=== PATIENT | female | born 1940 | race Caucasian/White ===

== ENCOUNTER → 2017-09-02 07:21 | Day surgery (SDC) | payer MEDICARE, OTHER, SELFPAY ==
[2017-09-02 07:39] VITALS: BP 171/97; PULSE 68; RESP 18; O2SAT 100
--- NOTE | 2017-09-02 08:03 | NURSING ---
MANOMETRY ATTEMPTED. L. NARE ANESTHETIZED WITH LIDOCAINE JELLY. PT. PLACED INTO HIGH FOWLERS POSITION. PROBE INSERTED INTO L. NARE AFTER SEVERAL MINUTES FOLLOWING LIDOCAINE JELLY INSERTION. PROBE APPEARED TO BE COILED. RN PULLED PROBE OUT SEVERAL CENTIMETERS AND REINSERTED. PT. PAINFUL, TEARFUL AND UNABLE TO TOLERATE. PT. REQUESTED THAT PROBE BE REMOVED AND TEST ABORTED. PROBE REMOVED. NO VISIBLE BLEEDING. RN ESCORTED PT. OUT TO EXIT DOOR. DR. GIL'S OFFICE TO BE NOTIFIED.
== END ==
PROVIDERS: Family Provider Family Medicine; PCP Family Medicine; Visit Provider Surgery
PROC: F00ZJWZ Instrumental Swallowing and Oral Function Assessment using Swallowing Equipment (ICD-10-PCS; CPT 43235; principal; 2017-09-02 07:25)
DX: Z53.29 Procedure and treatment not carried out because of patient's decision for other reasons (principal)

== ENCOUNTER → 2018-05-26 08:05 | Outpatient (CLI) | payer MEDICARE, OTHER, SELFPAY ==
--- NOTE | 2018-05-26 08:09 | RAD_ITS ---
STUDY: X-RAY - ESOPHAGUS (BARIUM SWALLOW) WITH FLUOROSCOPY REASON FOR EXAM: Female, 77 years old. Dysphagia. Esophageal spasms. TECHNIQUE: 16 view(s) of the esophagus were obtained following swallowing of barium. FLUOROSCOPY TIME (if supplied): (0:33) minutes/seconds COMPARISON: Comparison is made with prior study dated April 03, 2017. FINDINGS: There is no demonstrated esophageal foreign body. There is no demonstrated stricture or mucosal abnormality. There is a large hiatal hernia with intrathoracic herniation of the fundus of the stomach. Narrowing of the distal esophagus at the gastroesophageal junction. The patient ingest a 12 mm tablet of barium. The tablet and strap at the level of the gastroesophageal junction. There is atherosclerotic tortuosity of the aortic arch and descending thoracic aorta. Normal visualized pulmonary parenchyma. There are diffuse degenerative changes of the visualized thoracic spine. RAD/Esophagus Only IMPRESSION: Large hiatal hernia with narrowing of the distal esophagus at the level of the gastric esophageal junction. The 12 mm tablet that barium is trapped at that site. Electronically Signed: Itz Larkin, at 15:39 EDT , Service support ,
== END ==
PROVIDERS: Family Provider Family Medicine; PCP Family Medicine; Referring Provider Internal Medicine Gastroenterology; Visit Provider Internal Medicine Gastroenterology
DX: R13.10 Dysphagia, unspecified (principal)
CPT/HCPCS: 74220

== ENCOUNTER 2018-07-14 10:42 | Inpatient (IN) | payer MEDICARE, OTHER, SELFPAY ==
[2018-07-14] VITALS (9 sets, daily range): BP systolic 111–150; BP diastolic 62–81; PULSE 79–105; RESP 14–22; TEMP 36.8–38.8; O2SAT 97–100; BMI 32.5; BMI 33.0
--- NOTE | 2018-07-14 10:56 | EKG12_ITS ---
Test Reason : Blood Pressure : / mmHG Vent. Rate : 098 BPM Atrial Rate : 098 BPM P-R Int : 172 ms QRS Dur : 086 ms QT Int : 342 ms P-R-T Axes : 031 016 020 degrees QTc Int : 436 ms Sinus rhythm with occasional Premature ventricular complexes Otherwise normal ECG Confirmed by IRAIS TEAGUE, KYLEIGH ([id number]), proposal editor RAFFI SALMERON ([id number]) on 07/16/2018 9:28:55 AM Referred By: Richard Martinez Confirmed By:KYLEIGH BRAXTON MD
[2018-07-14] MEDS: Acetaminophen 325 MG Tablet 650 MG PO (11:11)
[2018-07-14 11:26] LABS: Absolute Lymphocyte Count 0.88 X10^3/ul (0.83-4.51); Absolute Neutrophil Count 8.9 X10^3/uL (2.0-7.7); Basophil# 0.01 X10^3/uL; Basophil% 0.1 % (0-1); Eosinophil# 0.03 X10^3/uL; Eosinophils% 0.3 % (0-5); Hemoglobin 13.8 g/dl (12.0-15.0); Lymphocyte # 0.88 X10^3/ul (4.0); Lymphocyte % 8.4 % (19-41); Mean Corp Hgb Conc 34.5 g/gl (32-36); Mean Corpuscular Hgb 29.6 pg (27.0-32.0); Mean Corpuscular Volume 85.8 fL (81-99); Mean Platelet Vol. 9.9 fl (6.2-12.0); Monocyte# 0.67 X10^3/uL; Monocyte% 6.4 % (0-10); Neutrophil # 8.85 X10^3/uL (2.7-7.7); Neutrophil % 84.5 % (47-70); POSITIVE COUNT NO; POSITIVE DIFFERENTIAL NO; POSITIVE MORPHOLOGY NO; Platelet Count 159 K/mm3 (150-450); RBC Distribution Width CV 13.3 % (11.6-14.6); RBC Distribution Width SD 40.7 fl (35.1-43.9); Red Blood Count 4.66 M/mm3 (4.2-5.4); White Blood Count 10.5 K/mm3 (4.4-11.0)
[2018-07-14 11:30] LABS: Red Blood Cells-Urine 0 SEEN /hpf (0-5)
[2018-07-14] MEDS: Ceftriaxone 1 GM/50 ML BAG IV (11:30)
[2018-07-14] MEDS: 0.9% Normal Saline 1,000 ML 250 ML IV (11:30)
[2018-07-14 11:31] LABS: Color, Urine Yellow (Yellow); Glucose, Dipstick Normal (Normal); Ketone-Dipstick 5 mg/dl (Negative); Leukocyte Esterase-Dipstick 500 /ul (Negative); Nitrite-Dipstick Negative (Negative); Occult Blood-Urine 10 /ul (Negative); Protein-Dipstick 15 mg/dl (Negative); Specific Gravity, Urine 1.015 (1.002-1.030); Urine Bilirubin Dipstick Negative (Negative); Urine Clarity Sl. Cloudy (Clear); Urine Urobilinogen 1 mg/dl (Normal)
--- NOTE | 2018-07-14 11:33 | ED.VIS.GEN ---
History of Present Illness Chief Complaint: Fever Informant: Patient, Significant Other Onset: Days Context: Sudden Onset Timing: Continuous Quality: Fever Location: Respiratory and generalized Current Severity: Mild Maximum Severity: Moderate Worsened by: Nothing Relieved by: Nothing Associated Symptoms: Diagnosed by Dr. Koch on Friday with urinary tract infection Narrative: Patient is an elderly woman who was seen by Dr. Koch her PCP on Friday. Diagnosed with urinary tract infection and prescribed Macrobid. Patient states she is taking the medicine. She continues to have fever. She denies dysuria, frequency, urgency or hematuria. She denies lower abdominal pain, low back pain or flank pain. She denies rash or skin lesions. She does report nausea with dry heaves. She denies cardiac or respiratory symptoms. Prior similar symptoms: Yes Recent Illness/Hospitalization: Yes Past Medical History - Allergies and Home Meds Allergies/Adverse Reactions: Allergies codeine Allergy (Verified 07/14/18 10:45) Unknown Sulfa (Sulfonamide Antibiotics) Allergy (Verified 07/14/18 10:45) Unknown Primary Care Physician: Umberto Koch MD [Primary Care Provider] - Prior records reviewed: Yes Surgical History: noncontributory, adenoidectomy, appendectomy, cholecystectomy, hysterectomy - With bilateral salpingo-oophorectomy Lives: Spouse/ Significant Other Smoking Status: Never smoker Alcohol: None Drugs: None Review of Systems General: Reports: Chills, Fever, Sweats. Denies: Weight loss Eyes: Denies: Visual changes - bilaterally, Blurred Vision - bilaterally, Diplopia ENT: Denies: Bilateral ear pain, Rhinorrhea, Sore throat Cardiovascular: Denies: Chest pain, Palpitations Respiratory: Denies: Dyspnea, Cough, Dyspnea on exertion Gastrointestinal: Denies: Abdominal pain, Nausea, Vomiting, Diarrhea, Melena, Hematochezia Genitourinary: Denies: Dysuria, Hematuria, Frequency Musculoskeletal: Denies: Myalgias, Arthralgias, Neck pain, Back pain, Extremity Pain Skin: Denies: Rash, Wounds Neurological: Reports: Weakness Hematologic: Denies: Easy bruising, Easy bleeding Allergy: Denies: Uticaria Physical Exam Vital Signs/Narrative: Vital Signs Temp Pulse Resp BP Pulse Ox 07/14/18 10:42 101.8 F H 105 H 22 H 145/78 H 97 Inital Vital Signs reviewed: Yes General: Well nourished, Well developed, No Acute Distress Head: Normocephalic, Atraumatic Eyes: Perrl, EOMI. Negative for: Pale conjunctiva, Scleral icterus, - ENT: Moist mucous membranes, No rhinorrhea Neck: Supple, Nontender Cardiovascular: Regular rhythm, No murmurs, Normal S1, Normal S2, Tachycardia Respiratory: No distress, CTA bilaterally, Chest nontender Abdomen: Soft, Nontender, Nondistended, Normal bowel sounds, No masses. Negative for: Hepatomegaly, Splenomegaly, Mass Back: Nontender, Normal Inspection. Negative for: CVA tenderness Extremities: Nontender, No edema Skin: Normal color, No rash. Negative for: Cyanosis, Jaundice Neurological: Alert, Oriented x3, Cranial nerves II-XII grossly intact, Normal Strength, Normal Sensation Psychological: Normal affect, Normal Mood Diagnostic/Tx/Re-eval Laboratory Results 07/14/18 07/14/18 07/14/18 11:15 11:15 11:15 WBC 10.5 RBC 4.66 Hgb 13.8 Hct 40.0 MCV 85.8 MCH 29.6 MCHC 34.5 RDW 13.3 RDW Differential 40.7 Plt Count 159 MPV 9.9 Immature Gran % (Auto) 0.300 Neut % (Auto) 84.5 H Lymph % (Auto) 8.4 L [place] % (Auto) 6.4 Eos % (Auto) 0.3 Baso % (Auto) 0.1 Absolute Neuts (auto) 8.9 H Absolute Lymphs (auto) 0.88 Total Counted Not Reportable PT 13.5 INR 1.1 APTT 27.1 Sodium 140 Potassium 3.4 L Chloride 107 Carbon Dioxide 25.0 Anion Gap 8 BUN 16 Creatinine 0.94 Estim Creat Clear Calc 39.64 Est GFR (MDRD) Af Amer 74 Est GFR (MDRD) Non-Af 61 BUN/Creatinine Ratio 17.0 Glucose 130 H Lactic Acid Calcium 8.7 Total Bilirubin 0.70 AST 19 ALT 20 Alkaline Phosphatase 72 Total Protein 7.5 Albumin 3.9 Globulin 3.6 Albumin/Globulin Ratio 1.1 Urine Color Urine Clarity Urine pH Ur Specific [place] Urine Protein Urine Glucose (UA) Urine Ketones Urine Occult Blood Urine Nitrite Urine Bilirubin Urine Urobilinogen Ur Leukocyte Esterase Urine RBC Urine WBC Ur Squamous Epith Cells Urine Bacteria Urine Mucus 07/14/18 07/14/18 11:15 11:15 WBC RBC Hgb Hct MCV MCH MCHC RDW RDW Differential Plt Count MPV Immature Gran % (Auto) Neut % (Auto) Lymph % (Auto) [place] % (Auto) Eos % (Auto) Baso % (Auto) Absolute Neuts (auto) Absolute Lymphs (auto) Total Counted PT INR APTT Sodium Potassium Chloride Carbon Dioxide Anion Gap BUN Creatinine Estim Creat Clear Calc Est GFR (MDRD) Af Amer Est GFR (MDRD) Non-Af BUN/Creatinine Ratio Glucose Lactic Acid 1.8 Calcium Total Bilirubin AST ALT Alkaline Phosphatase Total Protein Albumin Globulin Albumin/Globulin Ratio Urine Color Yellow Urine Clarity Sl. Cloudy Urine pH 6.0 Ur Specific [place] 1.015 Urine Protein 15 H Urine Glucose (UA) Normal Urine Ketones 5 H Urine Occult Blood 10 H Urine Nitrite Negative Urine Bilirubin Negative Urine Urobilinogen 1 H Ur Leukocyte Esterase 500 H Urine RBC 0 SEEN Urine WBC 5-10 SEEN Ur Squamous Epith Cells 0-5 SEEN Urine Bacteria 1+ Urine Mucus 1+ - Rhythm Strip Rhythm Strip: Sinus Rhythm Rate: 105 Ectopy: PVC(s) - EKG Initial EKG Interpretation: Sinus Tachycardia - Ventricular rate is 98. There are premature ventricular beats noted. OH interval, cures duration, QT interval and axis are normal. - Medical Decision Making With recent diagnosis of urinary tract infection persistent fever and the fact that she is tachycardic tachypnic sepsis work was undertaken. Appropriate test were obtained. Since she denies shortness of breath, dyspnea on exertion or respiratory symptoms chest x-ray was not obtained. She was treated with 1 g of Rocephin. Lactate was obtained to assess if she has sepsis versus severe sepsis versus septic shock. Patient still has evidence of urinary tract infection. Since she is tachycardic, tachypneic and febrile hospitalist was paged for admission. ED Disposition - Plan for ED Patient: Disposition: Acute Care [facility], [place] Diagnosis: Urinary tract infection, Sepsis, Sinus tachycardia by electrocardiogram Referrals: Umberto Koch MD [Primary Care Provider] -
[2018-07-14 11:35] LABS: International Normalized Ratio 1.1; Partial Thromboplast Time 27.1 Seconds (24.1-36.2); Prothrombin Time (Protime)PT. 13.5 SECONDS (11.7-14.9)
[2018-07-14 11:37] LABS: Bacteria 1+ /hpf (None Seen); Squamous Epithelial Cells - UA 0-5 SEEN /hpf (5-10); White Blood Cells 5-10 SEEN /hpf (0-5)
[2018-07-14 11:38] LABS: Mucous, Urine 1+ /hpf (<or=2+)
[2018-07-14 11:54] LABS: ALB/GLOB Ratio 1.1 RATIO (0.9-2.4); AST(SGOT) 19 U/L (15-37); Alanine Aminotransfer ALT/SGPT 20 U/L (13-56); Albumin, Serum 3.9 g/dL (3.2-5.0); Alkaline Phosphatase 72 U/L (45-117); Anion Gap 8 (5-15); BUN 16 mg/dL (7-18); Calcium,Total 8.7 mg/dL (8.5-10.1); Chloride 107 mmol/L (98-107); Creatinine, Serum 0.94 mg/dL (0.55-1.02); EST Glomerular Filtration Rate 61 mL/min (>60); Est Glom Filt Rate - Afr Amer 74 mL/min (>60); Estimated Creatinine Clearance 39.64 ml/min; Globulin 3.6 g/dL (2.2-4.2); Glucose 130 mg/dL (74-106); Potassium 3.4 mmol/L (3.5-5.1); Protein, Total 7.5 g/dL (6.4-8.2); Sodium Level 140 mmol/L (136-145)
[2018-07-14 11:58] LABS: Lactic Acid 1.8 mmol/L (0.4-2.0)
--- NOTE | 2018-07-14 13:11 | NURSING ---
301 JASON SEPSIS SECONDARY TO UTI, FAILED OP TREATMENT
--- NOTE | 2018-07-14 13:20 | RAD_ITS ---
STUDY: X-RAY CHEST REASON FOR EXAM: Female, 77 years old. Fever and chills. History of UTI. TECHNIQUE: PA and lateral views of the chest. COMPARISON: Comparison is made with prior study dated April 03, 2017. FINDINGS: EKG electrodes are seen. Stable increased mild degree of bibasilar scarring. There is no demonstrated pleural abnormality. Normal size heart. Normal mediastinum and brayan. Normal visualized pulmonary arteries. There is atherosclerotic calcification of the aortic arch with tortuosity. There are degenerative changes of the visualized thoracic spine. Normal visualized ribs, clavicles, and shoulders. Moderate sized hiatal hernia. RAD/Chest PA and Lateral IMPRESSION: Stable mild degree of scarring at the lung bases. Electronically Signed: Itz Larkin, at 13:46 EDT , Service support ,
--- NOTE | 2018-07-14 14:39 | CT_ITS ---
STUDY: CT ABDOMEN AND PELVIS WITHOUT CONTRAST REASON FOR EXAM: Female, 77 years old. Right lower quadrant pain, prior appendectomy, cholecystectomy and hysterectomy. RADIATION DOSAGE (If Supplied By Facility): CTDIvol = ( 15.64 ) mGy, DLP = ( 718.87 ) mGycm TECHNIQUE: Transaxial images were obtained from the dome of the diaphragm to the symphysis pubis without oral contrast, and without intravenous contrast. Sagittal and coronal images were reconstructed. Individualized dose optimization techniques were used for this CT. COMPARISON: None. FINDINGS: Body wall soft tissues: No acute process. Osseous structures: A densely sclerotic sharply circumscribed focus within the right iliac crest is consistent with benign osteoma. There is no convincing evidence of osseous metastatic disease. Osteopenia, mild scoliosis, multilevel lumbar spondylosis contributing to only mild foraminal narrowing at L4-L5 were there is a component of mild grade 1 spondylolisthesis and facet hypertrophy. Inferior chest: A peribronchial distribution, right lower lobe multi segmental, several ground glass tree-in-bud nodular opacities are present, mild marginal spiculation, associated with minimal surrounding groundglass opacities, in a pattern most consistent with an acute infectious process. Calcified pulmonary nodule of the right lower lobe lateral basilar segment and calcified mediastinal lymph nodes are consistent with old granulomatous disease. There is a small left posterior diaphragmatic hernia containing fat, typically of no clinical significance, developmental. There is a large sliding hiatal hernia containing the majority of the gastric fundus with evidence of fluid in the ectatic distal 3rd of the esophagus which may reflect retained fluid due to esophageal dysmotility, or reflux. Evaluated portions of the heart are unremarkable. Hepatobiliary: Cholecystectomy, otherwise unremarkable. Pancreas: No acute process. Spleen: Punctate calcifications consistent with old granulomatous disease. Adrenal glands: Normal. Urogenital: Normal kidneys, collecting systems, ureters, urinary bladder. Uterus absent. No adnexal mass or cyst. Pelvic floor and sidewalls and retroperitoneum: A few small iliac chain lymph nodes are present, none pathologically enlarged. No retroperitoneal lymphadenopathy. Vasculature: Trace atherosclerosis. Stomach: No acute process. Small bowel and mesentery: No acute process. Large bowel: The appendix is surgically absent. Distal descending and sigmoid diverticulosis without evidence of acute diverticulitis. Normal rectum. Free fluid or free air: None. CT/Abdomen/Pelvis without Cont IMPRESSION: Diverticulosis of the sigmoid colon without diverticulitis. No other acute intra-abdominal process is evident. Large sliding hiatal hernia. Right lower lobe pneumonia. Given the peribronchial tree-in-bud morphology of the infiltrate, consider the possible of atypical organisms in addition to community-acquired pneumonia. Given the features of the distal esophagus, patulous segment containing fluid, consider the possibility of aspiration. Electronically Signed: Isaiah Gamino MD at 15:34 EDT Tel , Service support ,
--- NOTE | 2018-07-14 14:43 | PCM.HP.STD ---
Problem List (1) Urinary tract infection Status: Acute (2) Sepsis Status: Acute (3) Sinus tachycardia by electrocardiogram Status: Acute (4) Hypertension Status: Chronic History of Present Illness Date of Admission: 07/14/18 Chief Complaint: Fever with chills at home and right flank pain The patient is a 77 year old F history of hypertension and esophageal motility disorder status post dilatation [address] Oakes came to ED for fever and chills on and off since last Friday about 1 week. She also had right flank pain on and off for 1 week. She saw her PCP Dr. Koch on past Friday and was given Macrobid but she still has fever and chills. About 2 days ago she had sharp right flank pain which recurred today, localized lasted for about 4 hours without radiation to groin or or inner aspect of thigh. She denies any prior history of stone or urology problem but her parents a history of kidney stones. Denies URI symptoms including cough or sinus congestion. Patient denies increased frequency, urgency, burning micturition, acute retention of urine or any change in characteristics of urine. Denies change in bowel movement. No Nausea or vomiting. In ED, temperature was 101.8 Fahrenheit and thereafter afebrile. Heart rate 105. Basic blood work in ED does not show leukocytosis. K3.4. Glucose 130. Consults, RBC 0, LE 500, nitrite negative. 1+ bacteria. Patient was given 1 dose of IV ceftriaxone and Tylenol in the ED. Past Medical History Past Medical History (Chronic Problems): Chronic Problems Hypertension (Chronic) Allergies codeine Allergy (Verified 07/14/18 10:45) Unknown Sulfa (Sulfonamide Antibiotics) Allergy (Verified 07/14/18 10:45) Unknown Home Medications: Ambulatory Orders Medication Instructions Recorded Amlodipine [Norvasc] 10 mg PO DAILY 07/14/18 Atenolol 50 mg PO QHS 07/14/18 Nitrofurantoin Macrocrystals 100 mg PO BID 07/14/18 [Macrobid] Omeprazole [Prilosec] 20 mg PO BID 07/14/18 Pravastatin [Pravachol] 20 mg PO QHS 07/14/18 Ramipril [Altace] 10 mg PO DAILY 07/14/18 Valacyclovir HCl [Valacyclovir] 500 mg PO PRN PRN 07/14/18 Surgical History: noncontributory, adenoidectomy, appendectomy, cholecystectomy, hysterectomy - With bilateral salpingo-oophorectomy Lives: Spouse/ Significant Other Smoking Status: Never smoker Tobacco Use: Non-smoker Alcohol: None Drugs: None - *Family History Paternal History Items: - - Kidney stone Review of Systems Constitutional: Reports: Chills, Fever, Malaise HEENT: Denies: Head Aches, Sinus Congestion, Sinus Drainage Cardiovascular: Denies: Chest Pain, Palpitations Respiratory: Denies: Cough, Shortness of breath at rest, Sputum production Gastrointestinal: Reports: Abdominal Pain - Right flank pain. Denies: Constipation, Diarrhea, Hematemesis, Hematochezia, Nausea, Melena, Vomiting Genitourinary: Denies: Dysuria, Frequency, Hematuria, Nocturia, Retention, Urgency Musculoskeletal: Reports: Joint Pain. Denies: Joint Tenderness Skin: Denies: Rash, Wounds Neurological: Denies: Numbness, Tingling, Focal weakness Psychiatric: Denies: Anxiety, Depression, Homicidal Ideations, Suicidal Ideations Hematologic/ Lymphatic: Denies: Easy Bruising, Easy Bleeding VTE Information - Inpt Only VTE Present on Admission: No VTE Mechan Device Prophylaxis: None VTE Pharm Prophylaxis ordered?: Yes Patient Problems: Active and Suspected Problems Urinary tract infection (Acute) Sepsis (Acute) Sinus tachycardia by electrocardiogram (Acute) - Physical Exam General: Alert, Oriented x3, Cooperative HEENT: Atraumatic, PERRLA, EOMI, Normocephalic Neck: Supple, No JVD, Negative Carotid Bruits Lungs: Clear to auscultation, Normal air movement, No rhonchi, No wheeze, No rales Cardiovascular: Regular rate, Regular Rhythm, Normal S1, Normal S2, No murmurs Abdomen: Bowel Sounds Present, Soft, Non Tender, Non-Distended Extremities: Capillary Refill Less than 3 Seconds, Edema - Chronic bilateral lower extremity nonpitting edema most probably secondary to lymphedema/adipose tissue Skin: No rashes, No breakdown Musculoskeletal: No Tenderness to Palpation of Joints or Extremities, Arthritic Changes Neurological: Cranial nerves II-XII grossly intact, Deep Tendon Reflexes 2+/4 and Symmetrical, Neuro grossly intact Psych/Mental Status: Normal Affect, Appropriate Vital Signs Temp Pulse Resp BP Pulse Ox 98.5 F 79 16 150/75 H 100 07/14/18 14:06 07/14/18 14:06 07/14/18 14:06 07/14/18 14:06 07/14/18 14:06 Oxygen Flow Rate (L/min) 2 Oxygen Delivery Method Room Air Weight: 180 lb 6.4 oz Body Mass Index (BMI) 33.0 Laboratory Tests Past 24 Hrs 07/14/18 07/14/18 07/14/18 11:15 11:15 11:15 WBC 10.5 RBC 4.66 Hgb 13.8 Hct 40.0 MCV 85.8 MCH 29.6 MCHC 34.5 RDW 13.3 RDW Differential 40.7 Plt Count 159 MPV 9.9 Immature Gran % (Auto) 0.300 Neut % (Auto) 84.5 H Lymph % (Auto) 8.4 L [place] % (Auto) 6.4 Eos % (Auto) 0.3 Baso % (Auto) 0.1 Absolute Neuts (auto) 8.9 H Absolute Lymphs (auto) 0.88 Total Counted Not Reportable PT 13.5 INR 1.1 APTT 27.1 Sodium 140 Potassium 3.4 L Chloride 107 Carbon Dioxide 25.0 Anion Gap 8 BUN 16 Creatinine 0.94 Estim Creat Clear Calc 39.64 Est GFR (MDRD) Af Amer 74 Est GFR (MDRD) Non-Af 61 BUN/Creatinine Ratio 17.0 Glucose 130 H Lactic Acid Calcium 8.7 Total Bilirubin 0.70 AST 19 ALT 20 Alkaline Phosphatase 72 Total Protein 7.5 Albumin 3.9 Globulin 3.6 Albumin/Globulin Ratio 1.1 Urine Color Urine Clarity Urine pH Ur Specific [place] Urine Protein Urine Glucose (UA) Urine Ketones Urine Occult Blood Urine Nitrite Urine Bilirubin Urine Urobilinogen Ur Leukocyte Esterase Urine RBC Urine WBC Ur Squamous Epith Cells Urine Bacteria Urine Mucus 07/14/18 07/14/18 11:15 11:15 WBC RBC Hgb Hct MCV MCH MCHC RDW RDW Differential Plt Count MPV Immature Gran % (Auto) Neut % (Auto) Lymph % (Auto) [place] % (Auto) Eos % (Auto) Baso % (Auto) Absolute Neuts (auto) Absolute Lymphs (auto) Total Counted PT INR APTT Sodium Potassium Chloride Carbon Dioxide Anion Gap BUN Creatinine Estim Creat Clear Calc Est GFR (MDRD) Af Amer Est GFR (MDRD) Non-Af BUN/Creatinine Ratio Glucose Lactic Acid 1.8 Calcium Total Bilirubin AST ALT Alkaline Phosphatase Total Protein Albumin Globulin Albumin/Globulin Ratio Urine Color Yellow Urine Clarity Sl. Cloudy Urine pH 6.0 Ur Specific [place] 1.015 Urine Protein 15 H Urine Glucose (UA) Normal Urine Ketones 5 H Urine Occult Blood 10 H Urine Nitrite Negative Urine Bilirubin Negative Urine Urobilinogen 1 H Ur Leukocyte Esterase 500 H Urine RBC 0 SEEN Urine WBC 5-10 SEEN Ur Squamous Epith Cells 0-5 SEEN Urine Bacteria 1+ Urine Mucus 1+ Assessment/Plan All Active Problems Urinary tract infection (Acute) Sepsis (Acute) Sinus tachycardia by electrocardiogram (Acute) The patient is a 77 year old F history of hypertension and esophageal motility disorder status post dilatation [address] Oakes came to ED for fever and chills on and off since last Friday about 1 week. She also had right flank pain on and off for 1 week. She saw her PCP Dr. Koch on past Friday and was given Macrobid but she still has fever and chills. About 2 days ago she had sharp right flank pain which recurred today, localized lasted for about 4 hours without radiation to groin or or inner aspect of thigh. She denies any prior history of stone or urology problem but her parents a history of kidney stones. Denies URI symptoms including cough or sinus congestion. Patient denies increased frequency, urgency, burning micturition, hematuria, acute retention of urine or any change in characteristics of urine. Denies change in bowel movement. No Nausea or vomiting. In ED, temperature was 101.8 Fahrenheit and thereafter afebrile. Heart rate 105. Basic blood work in ED does not show leukocytosis. K3.4. Glucose 130. Consults, RBC 0, LE 500, nitrite negative. 1+ bacteria. Patient was given 1 dose of IV ceftriaxone and Tylenol in the ED. 1. Fever with right flank pain suspicion of possible urinary stone/pyelonephritis: Patient is being admitted in [facility]. On IV fluid normal saline. Started on IV ceftriaxone. Supportive management with antiemetics, pain control and Tylenol as needed for fever. Blood cultures x2 and urine culture ordered in ER. Follow urine culture and blood cultures x2. 2. Hypertension, dyslipidemia: Patient home medications ramipril, amlodipine and pravastatin continued. 2. Esophageal dysphagia secondary to motility disorder and possible GERD: Patient follows Dr. Vegas. She had dilatation in the past and is scheduled for Botox injection. Continue Protonix. 3. DVT prophylaxis: On Lovenox 40 mg subcu daily. Code Visit Inpatient E&M: [id number] Init Hosp L3
[2018-07-14] MEDS: Enoxaparin 40 MG/0.4 ML Syringe SC (15:25)
[2018-07-14] MEDS: Ramipril 10 MG Capsule PO (15:26)
[2018-07-14] MEDS: amLODIPine 10 MG Tablet PO (15:26)
[2018-07-14] MEDS: 0.9% Normal Saline 1,000 ML 100 ML IV (15:26)
[2018-07-14] MEDS: Atenolol 50 MG Tablet PO (21:55)
[2018-07-14] MEDS: Pravastatin 20 MG Tablet PO (21:56)
[2018-07-14] MEDS: Pantoprazole Sodium 20 MG Tablet PO (21:56)
[2018-07-15] MEDS: Acetaminophen 325 MG Tablet 650 MG PO (00:20)
[2018-07-15 02:31] VITALS: BP 119/77; PULSE 72; RESP 16; TEMP 36.9; O2SAT 95
[2018-07-15 05:51] LABS: Absolute Lymphocyte Count 1.12 X10^3/ul (0.83-4.51); Absolute Neutrophil Count 4.4 X10^3/uL (2.0-7.7); Anion Gap 7 (5-15); BUN 10 mg/dL (7-18); BUN/Creat Ratio 12.2 RATIO (10-20); Basophil# 0.02 X10^3/uL; Basophil% 0.3 % (0-1); Calcium,Total 7.9 mg/dL (8.5-10.1); Chloride 113 mmol/L (98-107); Creatinine, Serum 0.82 mg/dL (0.55-1.02); EST Glomerular Filtration Rate 71 mL/min (>60); Eosinophil# 0.09 X10^3/uL; Eosinophils% 1.5 % (0-5); Est Glom Filt Rate - Afr Amer 86 mL/min (>60); Estimated Creatinine Clearance 45.44 ml/min; Glucose 99 mg/dL (74-106); Hematocrit 32.7 % (37-47); Hemoglobin 11.1 g/dl (12.0-15.0); Lymphocyte # 1.12 X10^3/ul (4.0); Lymphocyte % 18.3 % (19-41); Mean Corp Hgb Conc 33.9 g/gl (32-36); Mean Corpuscular Hgb 29.6 pg (27.0-32.0); Mean Corpuscular Volume 87.2 fL (81-99); Mean Platelet Vol. 9.5 fl (6.2-12.0); Monocyte# 0.53 X10^3/uL; Monocyte% 8.6 % (0-10); Neutrophil # 4.35 X10^3/uL (2.7-7.7); Platelet Count 120 K/mm3 (150-450); RBC Distribution Width CV 13.6 % (11.6-14.6); RBC Distribution Width SD 43.5 fl (35.1-43.9); Red Blood Count 3.75 M/mm3 (4.2-5.4); Sodium Level 146 mmol/L (136-145); White Blood Count 6.1 K/mm3 (4.4-11.0)
[2018-07-15] MEDS: 0.9% NaCl Peripheral Flush Adult/Peds IV ×2 (05:57→08:04)
[2018-07-15 06:06] LABS: POSITIVE COUNT NO; POSITIVE DIFFERENTIAL NO; POSITIVE MORPHOLOGY NO
[2018-07-15 07:30] VITALS: O2SAT 99
[2018-07-15 08:07] LABS: Hemoglobin A1c 5.8 % (4.2-6.3)
[2018-07-15 10:16] VITALS: BP 133/63; PULSE 67; RESP 18; TEMP 36.9; O2SAT 100
[2018-07-15] MEDS: amLODIPine 10 MG Tablet PO (10:21)
[2018-07-15] MEDS: Ramipril 10 MG Capsule PO (10:21)
[2018-07-15] MEDS: Pantoprazole Sodium 20 MG Tablet PO (10:21)
[2018-07-15] MEDS: Amox/Clavulanate 875 MG Tablet PO (10:21)
[2018-07-15] MEDS: Enoxaparin 40 MG/0.4 ML Syringe SC (10:21)
--- NOTE | 2018-07-15 11:33 | DCINST_ITS ---
- Discharge Diagnoses Current Active Problems: Current Active and Chronic Problems Urinary tract infection (Acute) Sepsis (Acute) Sinus tachycardia by electrocardiogram (Acute) Hypertension (Chronic) You will use the following diet at home:: No restrictions Your liquids should be the consistency of: Regular/Thin Discharge Activity: Return to Normal Activity Weight Bearing Status: Weight bearing as tolerated Allergies/Adverse Reactions: Allergies codeine Allergy (Verified 07/14/18 10:45) Unknown Sulfa (Sulfonamide Antibiotics) Allergy (Verified 07/14/18 10:45) Unknown Medications to take at Discharge Amlodipine [Norvasc] 10 mg PO DAILY 07/14/18 Atenolol 50 mg PO QHS 07/14/18 Omeprazole [Prilosec] 20 mg PO BID 07/14/18 Pravastatin [Pravachol] 20 mg PO QHS 07/14/18 Ramipril [Altace] 10 mg PO DAILY 07/14/18 Valacyclovir HCl [Valacyclovir] 500 mg PO PRN PRN 07/14/18 Amox/Clavulanate Tablet [Augmentin Tablet] 875 mg PO BID #13 tablet 07/15/18 The following prescriptions were given: Amox/Clavulanate Tablet [Augmentin Tablet] 875 mg PO BID #13 tablet Primary Care Physician: Umberto Koch MD [Primary Care Provider] - Please follow up with your Primary Care Physician in: IN 3 WEEKS Test Results: Test results from this visit will be discussed in further detail at your follow- up appointment, if applicable.
--- NOTE | 2018-07-15 11:50 | CASEMGMT ---
LW/POSanna not in chart. SW let pt know, she will bring in the forms at some point in the future. BEATRICE Weir
--- NOTE | 2018-07-15 12:14 | CASEMGMT ---
RN ASH INSTRUMENT TECH CM to room to meet with patient for initial transition planning/care coordination assessment. ALANA ALEMAN introduced self and role at [facility]. Pt voices understanding and consents to assessment at this time. Pt resting in bed in no distress at this time. Pt is A/O at this time and answers all questions appropriately. Care providers, pharmacy, and demographics verified/updated at this time. PCP: August Specialists: Aung Oakes Preferred Pharmacy: [facility] Insurance: [employer], [email or web address] Prescription Benefit: [employer]. Denies concern with [id number] costs/co-pays. Living Will/HPOA: Has both LW and HCPOA, who is her , Oc. LNOK: . Living Arrangements: Lives with @ [facility]. States is one-story and all handicap accessible. States is independent with all ADL's, household tasks, medication mgmt, and appts. Transportation: Pt states drives self and states no transportation concerns at this time. DME: Denies using any DME and denies needs. Ambulates independently without DME. HHC/SNF: No history of either. Denies need for HHC. No needs identified. Pt wishes to return home and states has no concerns with going home at time of discharge. CM to follow for any discharge planning/needs. Pt voices no further concerns/needs at this time. Advised pt to ask for CM if any further questions/concerns/needs arise. Voices understanding. PLAN: Home Luci TRIVEDI RN, CM
--- NOTE | 2018-07-16 17:16 | PCM.DC.SUM ---
Discharge Date and Diagnosis Date of Admission: 07/14/18 Date of Discharge: 07/15/18 - Primary Discharge Diagnosis #1 acute cystitis-bacterial, etiology unknown, failed outpatient treatment #2 right lower quadrant abdominal pain-etiology unknown #3 hypertension #4 hypokalemia - Secondary Discharge Diagnosis Chronic Problems Hypertension (Chronic) Hospital Course and Treatment Operations: None Procedures: None Summary of Care Provided: The patient is a 77 year old F who was seen in the emergency room at [facility] with chief complaint of chills, malaise, and fever. Patient had been diagnosed as an outpatient with acute cystitis several days prior and placed on Macrodantin. Work-up in the emergency room included a CBC which was unremarkable, chemistry profile was remarkable for a low potassium at 3.4, urinalysis showed +1 bacteria, 5-10 WBCs, and 0 RBCs. Patient was given IV Rocephin in the emergency room, she was admitted to [place] [address] and her antibiotics were changed to Unasyn. Patient was given potassium supplementation. Due to complaints of right lower quadrant pain, she underwent a CT of the abdomen which did not show any definite pathology. On 07/15/2018, patient was seen and examined, CBC had been repeated that morning and was still negative, patient felt improved, she was discharged home in stable condition. On examination she appeared in good health and spirits. Vital signs as documented. Skin warm and dry and without overt rashes. Neck without JVD. Lungs clear. Heart exam notable for regular rhythm, normal sounds and absence of murmurs, rubs or gallops. Abdomen unremarkable and without evidence of organomegaly, masses, or abdominal aortic enlargement. Extremities nonedematous. Neuro: Cranial nerves II through XII are grossly intact, no focal motor deficits were noted, sensation to light touch and pinprick is intact. Psych: Patient is alert and oriented x3, she does not appear anxious or depressed On 07/15/2018, patient was seen and examined felt to be in stable condition for discharge home. - Physical Exam Vital Signs Temp Pulse Resp BP Pulse Ox 98.4 F 67 18 133/63 H 100 07/15/18 10:16 07/15/18 10:16 07/15/18 10:16 07/15/18 10:16 07/15/18 10:16 Oxygen Flow Rate (L/min) 2 Oxygen Delivery Method Room Air Weight: 81.82 kg Body Mass Index (BMI) 33.0 Intake and Output for Last 24 Hours 07/14/18 07/15/18 07/16/18 23:59 23:59 23:59 Intake Total 566 / 566 1177 / 1177 Output Total 1300 / 1300 500 / 500 Balance -734 / -734 677 / 677 Microbiology Past 72 Hours 07/14/18 11:15 Urine Culture - Final Urine, Clean Catch Mixed Gram Pos & Gram Neg Org Discharge Activity: Return to Normal Activity Weight Bearing Status: Weight bearing as tolerated Home Medications: Medications to take at Discharge Amlodipine [Norvasc] 10 mg PO DAILY 07/14/18 Atenolol 50 mg PO QHS 07/14/18 Omeprazole [Prilosec] 20 mg PO BID 07/14/18 Pravastatin [Pravachol] 20 mg PO QHS 07/14/18 Ramipril [Altace] 10 mg PO DAILY 07/14/18 Valacyclovir HCl [Valacyclovir] 500 mg PO PRN PRN 07/14/18 Amox/Clavulanate Tablet [Augmentin Tablet] 875 mg PO BID #13 tablet 07/15/18 Following Prescrptions Were Given to Patient: Amox/Clavulanate Tablet [Augmentin Tablet] 875 mg PO BID #13 tablet Primary Care Physician: Umberto Koch MD [Primary Care Provider] - Please follow up with your Primary Care Physician in: IN 3 WEEKS Disposition: Home Minutes spent on discharge:: 31 Patient Condition:: Stable Medical Necessity - Tobacco Use Smoking Status: Never smoker Tobacco Use: Non-smoker Meaningful Use Info Meaningful Use Diagnoses (Choose all that apply): None applicable Code Visit Inpatient E&M: 91675 Disch Hosp
== END 2018-07-15 12:42 | disposition home or self-care (01) | DRG 690 ==
LOC: ED 12:02 → MS3 13:23
PROVIDERS: Admitting Provider Internal Medicine; Emergency Provider Emergency Medicine; Family Provider Family Medicine; PCP Family Medicine; Referring Provider Internal Medicine; Visit Provider Internal Medicine
DX: N30.00 Acute cystitis without hematuria (principal); I10 Essential (primary) hypertension; E78.5 Hyperlipidemia, unspecified; B96.89 Other specified bacterial agents as the cause of diseases classified elsewhere; E87.6 Hypokalemia; R10.31 Right lower quadrant pain; R13.10 Dysphagia, unspecified
CPT/HCPCS: 36415; 71046; 74176; 80048; 80053; 81001; 83036; 83605; 85025; 85610; 85730; 87040; 87086; 87088; 93005; 99285; J7030; A4216; J0295

== ENCOUNTER 2020-04-06 13:06 | Inpatient (IN) | payer MEDICARE, OTHER, SELFPAY ==
[2018-07-14 14:06] VITALS: BMI 33.0
[2020-04-06] VITALS (10 sets, daily range): BP systolic 106–144; BP diastolic 61–79; PULSE 76–91; RESP 15–20; TEMP 35.6–37.2; O2SAT 93–98; BMI 32.3; BMI 33.6
--- NOTE | 2020-04-06 13:21 | EKG12_ITS ---
Test Reason : CP Blood Pressure : / mmHG Vent. Rate : 091 BPM Atrial Rate : 091 BPM P-R Int : 166 ms QRS Dur : 078 ms QT Int : 356 ms P-R-T Axes : 026 022 019 degrees QTc Int : 437 ms Sinus rhythm with occasional Premature ventricular complexes Possible Left atrial enlargement Borderline ECG Confirmed by IRAIS TEAGUE, KYLEIGH ([id number]), film or videotape editor DEREK LOVE ([id number]) on 04/11/2020 10:40:51 AM Referred By: AG Confirmed By:KYLEIGH BRAXTON MD
[2020-04-06] MEDS: Aspirin 81 MG TAB.CHEW 324 MG PO (13:29)
--- NOTE | 2020-04-06 13:30 | RAD_ITS ---
STUDY: X-RAY CHEST REASON FOR EXAM: Female, 79 years old. Shortness of breath, chest pain TECHNIQUE: Single AP portable view of the chest. COMPARISON: Comparison is made with prior study dated 07/14/2018. FINDINGS: EKG electrodes are seen. There now is evidence of a small left pleural effusion with left basilar atelectasis and/or infiltrate. Blunting of the left costophrenic angle with mild increased markings at the right lung base. Follow-up is recommended. Normal size heart. Normal mediastinum and brayan. Normal visualized pulmonary arteries. There is atherosclerotic calcification of the aortic arch with tortuosity. There are diffuse degenerative changes of the visualized thoracic spine. Normal visualized ribs, clavicles, and shoulders. Moderate sized hiatal hernia. RAD/Chest 1 View (Portable) IMPRESSION: Left pleural effusion with left basilar infiltrate/atelectasis with blunting of the right costophrenic angle and mild increased markings at the right lung base. Electronically Signed: Itz Larkin MD at 14:06 EST , Service support ,
--- NOTE | 2020-04-06 13:33 | ED.VISSUMM ---
- ER Visit Summary Date of Service: 04/06/20 Chief Complaint: Right-sided pleuritic chest pain History of Present Illness: The patient is a 79 F who hypertension, reflux esophageal spasms. Patient states last evening and today she had right-sided chest pain worse with deep breathing. Its above her right breast and to the right lateral and lower rib cage. She denies any fall injury or trauma. Associated mild shortness of breath. No prior history. No prior history of DVT or PE. No recent travel, surgery or immobilization. No hemoptysis. No fever or chills. No leg pain or swelling. Physical Examination: Older female no acute distress vital signs stable afebrile. Pulse ox 98% on room air no signs of hypoxia. H EENT exam unremarkable. Neck nontender no lymphadenopathy. Lungs clear to auscultation bilaterally. Heart regular rhythm no murmur rate about 90. Chest wall not exquisitely tender. Whenever pushed against my arms with her arms she said there is mild discomfort. No peritoneal signs. Patient is moving all 4 extremities. Calves are nontender without edema or cords. Neurologically she is awake and alert with no focal motor deficits. Back nontender. Test Results: EKG shows a sinus rhythm with occasional PVCs rate of 91 with no signs of OR or ischemia. X-ray portable 1 view interpreted myself and the radiologist shows small bilateral pleural effusions more so on the left. CBC normal white count of 10 hemoglobin 13. Chemistries unremarkable. PT/INR normal. Troponin normal. D-dimer elevated 4.84. Due to that her pleuritic pain obtain a CTA of the chest which shows multiple bilateral pulmonary emboli with small pleural effusions. All test results were discussed with the patient. On repeat exam at 4:09 PM patient is doing well. Emergency Department Course and Treatment: Patient with atypical right-sided chest pain that does not necessarily sound cardiac. It is concerning for being pleuritic but she has no PE risk factors or prior history. Showing go a cardiac work-up with a D-dimer. Treatment Plan: Hospitalist on page for admission. Patient be started on anticoagulation. I will discuss that with the hospitalist prior to starting any specific med. Disposition: Admission Impression: Atypical right-sided chest pain secondary to multiple bilateral pulmonary emboli This note was generated with [employer] software. It may contain incorrect words, spelling, and punctuation that were not noted in review of the chart prior to signing ED Disposition - Plan for ED Patient: Referrals: Umberto Koch MD [Primary Care Provider] -
[2020-04-06 13:34] LABS: Absolute Neutrophil Count 6.1 X10^3/uL (2.0-7.7); Basophil# 0.04 X10^3/uL; Basophil% 0.4 % (0-1); Eosinophil# 0.12 X10^3/uL; Eosinophils% 1.2 % (0-5); Hematocrit 41.6 % (37-47); Hemoglobin 13.9 g/dL (12.0-15.0); Lymphocyte % 28.7 % (19-41); Mean Corp Hgb Conc 33.4 g/dL (32-36); Mean Corpuscular Hgb 29.6 pg (27.0-32.0); Mean Corpuscular Volume 88.7 fL (81-99); Mean Platelet Vol. 9.1 fl (6.2-12.0); Monocyte# 0.91 X10^3/uL; NRBC Flagged by Analyzer 0 % (0-5); Neutrophil # 6.09 X10^3/uL (2.7-7.7); Neutrophil % 60.1 % (47-70); Platelet Count 222 K/mm3 (150-450); RBC Distribution Width CV 12.2 % (11.6-14.6); RBC Distribution Width SD 39.3 fl (35.1-43.9); Red Blood Count 4.69 M/mm3 (4.2-5.4); White Blood Count 10.1 K/mm3 (4.4-11.0)
[2020-04-06 13:49] LABS: International Normalized Ratio 1.1; Prothrombin Time (Protime)PT. 13.7 SECONDS (11.7-14.9)
[2020-04-06 13:52] LABS: Anion Gap 8 (5-15); BUN 14 mg/dL (7-18); BUN/Creat Ratio 13.1 RATIO (10-20); Calcium,Total 9.2 mg/dL (8.5-10.1); Chloride 106 mmol/L (98-107); Creatinine, Serum 1.07 mg/dL (0.55-1.02); EST Glomerular Filtration Rate 53 mL/min (>60); Est Glom Filt Rate - Afr Amer 64 mL/min (>60); Estimated Creatinine Clearance 32.17 ml/min; Glucose 111 mg/dL (74-106); Potassium 3.7 mmol/L (3.5-5.1); Sodium Level 139 mmol/L (136-145)
[2020-04-06 14:10] LABS: D-Dimer Quantitative (DVT/PE) 4.84 FEU/ug/m (0.27-0.49)
--- NOTE | 2020-04-06 14:16 | CT_ITS ---
STUDY: CTA CHEST REASON FOR EXAM: Female, 79 years old. SOB--WORSE WITH DEEP BREATHING, PLEURITIC CP, RT SIDE RADIATION DOSAGE (If Supplied By Facility): CTDIvol = ( 9.64 ) mGy, DLP = ( 341.15 ) mGycm TECHNIQUE: The examination was performed with the intravenous administration of IV 100mL Isovue-370. Post-processing of the angiographic images was performed, with multiplanar reformation and 3D reconstruction. Individualized dose optimization techniques were used for this CT. COMPARISON: Comparison is made with prior chest radiograph done earlier in the day. FINDINGS: Small benign-appearing left axillary lymph nodes. There are multiple intraluminal filling defects in branches of the right upper lobe pulmonary arterial distribution as well as in the branches of the right lower lobe pulmonary artery. Smaller filling defects are also seen in edges of the left lower lobe pulmonary artery. Normal thoracic aorta and visualized great vessels. There is no demonstrated aortic dissection. Normal heart and pericardium. Normal mediastinum. Normal hilar regions. Normal visualized trachea and bronchi. The lungs are well expanded. Small bilateral pleural effusions left greater than right with left lower lobe infiltrate. Mild increased markings at the right lung base suggestive of atelectasis. Normal pleura. Normal chest wall structures. There are degenerative changes of thoracic spine. Moderate sized hiatal hernia. CT/CTA Chest W/WO Contrast IMPRESSION: Multiple bilateral pulmonary emboli more prominent in the right hemithorax. This is superimposed on small bilateral pleural effusions with left lower lobe infiltrate and atelectasis at the right lung base. Electronically Signed: Itz Larkin MD at 15:19 EST , Service support ,
[2020-04-06] MEDS: Enoxaparin 80 MG/0.8 ML Syringe SC (17:45)
--- NOTE | 2020-04-06 18:01 | HP.PCM_ITS ---
<Andrea Gresham PA - Last Filed: 04/06/20 18:01> Problem List (1) Pulmonary embolism Status: Acute (2) Esophageal spasm Status: Chronic (3) HLD (hyperlipidemia) Status: Chronic (4) Hypertension Status: Chronic History of Present Illness Date of Admission: 04/06/20 Chief Complaint: chest pain The patient is a 79 year old F with pmhx of HTN, HLD, esophageal spasm, who presented to the ER with c/o Right sided chest pain. This is worse with deep breath. This began spontaneously last night. She has mild SOB as well. She came to the ER and was found to have BL PE's. She has no hx of PE / DVT. She denies family hx of DVT/PE. She denies recent trauma. She has no hypoxia at this time. No leg pain or swelling. [] Past Medical History Past Medical History (Chronic Problems): Chronic Problems Hypertension (Chronic) Esophageal spasm (Chronic) HLD (hyperlipidemia) (Chronic) Allergies codeine Allergy (Verified 04/06/20 13:07) Unknown Sulfa (Sulfonamide Antibiotics) Allergy (Verified 04/06/20 13:07) Unknown Home Medications: Ambulatory Orders Medication Instructions Recorded Amlodipine [Norvasc] 10 mg PO DAILY 07/14/18 Atenolol 50 mg PO QHS 07/14/18 Omeprazole [Prilosec] 20 mg PO BID 07/14/18 Pravastatin [Pravachol] 20 mg PO QHS 07/14/18 Ramipril [Altace] 10 mg PO DAILY 07/14/18 Surgical History: noncontributory, adenoidectomy, appendectomy, cholecystectomy, hysterectomy - With bilateral salpingo-oophorectomy Psychiatric History: No pertinent psych hx 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 Denies: Palpitations Respiratory: Reports: Shortness of Breath. Denies: Cough, Shortness of breath at rest, Sputum production Gastrointestinal: Denies: Abdominal Pain, Nausea, Vomiting Genitourinary: Denies: Dysuria Musculoskeletal: Denies: Joint Pain, Joint Tenderness Skin: Denies: Rash, Wounds Neurological: Denies: Numbness, Tingling, Focal weakness Psychiatric: Denies: Anxiety, Depression, Homicidal Ideations, Suicidal Ideations Hematologic/ Lymphatic: Denies: Easy Bruising, Easy Bleeding VTE Information - Inpt Only VTE Present on Admission: Yes VTE Mechan Device Prophylaxis: None VTE Pharm Prophylaxis ordered?: Yes Patient Problems: Active and Suspected Problems Pulmonary embolism (Acute) - Physical Exam Vitals/I&O's: Vital Signs Temp Pulse Resp BP Pulse Ox 98.9 F 86 18 106/64 96 04/06/20 17:44 04/06/20 17:44 04/06/20 17:44 04/06/20 17:44 04/06/20 17:44 Oxygen Delivery Method Room Air Weight: 171 lb Body Mass Index (BMI) 32.3 General: Alert, Oriented x3, Cooperative HEENT: Atraumatic, PERRLA, EOMI, Normocephalic Neck: Supple, No JVD, Negative Carotid Bruits Lungs: Clear to auscultation, Normal air movement Cardiovascular: Regular rate, No murmurs Abdomen: Bowel Sounds Present, Soft, Non Tender Extremities: No edema, Capillary Refill Less than 3 Seconds Skin: No rashes, No breakdown Musculoskeletal: No Tenderness to Palpation of Joints or Extremities Neurological: Cranial nerves II-XII grossly intact Psych/Mental Status: Normal Affect, Appropriate Microbiology Past 72 Hours 04/06/20 16:45 Mucosa - Nose SARS-CoV-2 Antigen (Rapid) - Final Laboratory Results 04/06/20 13:16: WBC 10.1, RBC 4.69, Hgb 13.9, Hct 41.6, MCV 88.7, MCH 29.6, MCHC 33.4, RDW Std Deviation 39.3, RDW Coeff of Lalit 12.2, Plt Count 222, MPV 9.1, Immature Gran % (Auto) 0.600, Neut % (Auto) 60.1, Lymph % (Auto) 28.7, [place] % (Auto) 9.0, Eos % (Auto) 1.2, Baso % (Auto) 0.4, Absolute Neuts (auto) 6.1, Absolute Lymphs (auto) 2.90, Nucleated RBC % 0 04/06/20 13:16: Sodium 139, Potassium 3.7, Chloride 106, Carbon Dioxide 25.0, Anion Gap 8, BUN 14, Creatinine 1.07 H, Estim Creat Clear Calc 32.17, Est GFR (MDRD) Af Amer 64, Est GFR (MDRD) Non-Af 53 L, BUN/Creatinine Ratio 13.1, Glucose 111 H, Calcium 9.2, Troponin I < 0.015 04/06/20 13:16: PT 13.7, INR 1.1, D-Dimer Quant (PE/DVT) 4.84 H* Assessment/Plan All Active Problems Urinary tract infection (Acute) Sepsis (Acute) Sinus tachycardia by electrocardiogram (Acute) Pulmonary embolism (Acute) 1. BL PE's - no prior hx. See CTA. Continue therapeutic lovenox. No hypoxia or tachycardia. Pt states she wants to go on xarelto as her took this in the past. 2. HTN - stable 3. HLD - statin 4. Hx esophageal spasm - yearly dilatation per Dr. Oakes. Continue PPI. DC planning: return to independent living when appropriate. This patient was seen by Andrea Gresham PA-C under the supervision of Dr. Mcclain. <Lora Mcclain - Last Filed: 04/06/20 21:50> History of Present Illness The patient is a 79 year old F [] Past Medical History Allergies codeine Allergy (Verified 04/06/20 13:07) Unknown Sulfa (Sulfonamide Antibiotics) Allergy (Verified 04/06/20 13:07) Unknown - Physical Exam Vitals/I&O's: Vital Signs Temp Pulse Resp BP Pulse Ox 97.7 F L 88 16 117/66 98 04/06/20 18:19 04/06/20 18:19 04/06/20 18:19 04/06/20 18:19 04/06/20 18:19 Oxygen Delivery Method Room Air Weight: 80.739 kg Body Mass Index (BMI) 33.6 Microbiology Past 72 Hours 04/06/20 16:45 Mucosa - Nose SARS-CoV-2 Antigen (Rapid) - Final Laboratory Results 04/06/20 13:16: WBC 10.1, RBC 4.69, Hgb 13.9, Hct 41.6, MCV 88.7, MCH 29.6, MCHC 33.4, RDW Std Deviation 39.3, RDW Coeff of Lalit 12.2, Plt Count 222, MPV 9.1, Immature Gran % (Auto) 0.600, Neut % (Auto) 60.1, Lymph % (Auto) 28.7, [place] % (Auto) 9.0, Eos % (Auto) 1.2, Baso % (Auto) 0.4, Absolute Neuts (auto) 6.1, Absolute Lymphs (auto) 2.90, Nucleated RBC % 0 04/06/20 13:16: Sodium 139, Potassium 3.7, Chloride 106, Carbon Dioxide 25.0, Anion Gap 8, BUN 14, Creatinine 1.07 H, Estim Creat Clear Calc 32.17, Est GFR (MDRD) Af Amer 64, Est GFR (MDRD) Non-Af 53 L, BUN/Creatinine Ratio 13.1, Glucose 111 H, Calcium 9.2, Troponin I < 0.015 04/06/20 13:16: PT 13.7, INR 1.1, D-Dimer Quant (PE/DVT) 4.84 H* Current Medications Sodium Chloride (0.9% Saline Lock 10 Ml Syringe) 10 - 40 ml IV UD PRN PRN Reason: SALINE FLUSH Assessment/Plan This patient was seen in conjunction with BRENDA Rasmussen. I have independently interviewed and examined the patient and reviewed pertinent historical, laboratory, and other data. Please refer to BRENDA Rasmussen note for his patient's presentation, findings, and recommendations. I have reviewed and his note and concur with his documentation 79-year-old female with past medical history of hypertension, hyperlipidemia, history of esophageal spasm who comes in chest pain which was described as pleuritic that started 1 day before admission. This is usually right sided seated with shortness of breath. She denied any history of DVT or PE or recent travel or surgery. She lives in an independent living facility. Her vitals were stable. On room air, not on oxygen. Her admitting blood work showed unremarkable CBC D. INR 1.1, dimer was 4.84. BMP was unremarkable except for creatinine of 1.07. Troponin is negative. Chest x-ray shows left pleural effusion with left basilar infiltrate/ate lectasis, blunting of the right costophrenic angle, increased markings in the right lung base. CTA chest shows multiple bilateral PE more prominent in the right hemithorax, superimposed on small bilateral pleural effusion with left lower lobe infiltrate not left the left lung base. Physical Exam: Gen: Comfortable, not pale, not jaundiced, well hydrated CVS:HS I +II, regular, no murmurs RESP: Diminished GI: BS present and normal, soft, nontender, no palpable organs EXT:No edema ASSESSMENT: 1. Acute bilateral PE 2. Bilateral pleural effusions 3. Bilateral atelectasis, doubt acute pneumonia 4. Hypertension 5. Hyperlipidemia 6. Esophageal spasm 7. CODE STATUS: DNRCC Plan: Pulmonology consult Therapeutic Lovenox BNPep stat 2D echo to evaluate for cardiomyopathy continue on amlodipine, atenolol Hold ramipril for now in the light of recent contrast for PE evaluation Repeat BMP in a.m. Encourage use of incentive spirometer Evaluate for ambulatory oxygen I discussed and explained in details the various types of CODE STATUS-full code, DNR CCA, DNR CC. Patient chose DNR CC. She stated she had a living will. She would generally like to be comfortable, including drawing a cardiopulmonary arrest. She would like her daughter Shannan Grossman to be her healthcare power of deputy commonwealth's attorney. Time spent discussing CODE STATUS 16 minutes Inpatient E&M: 62757 Init Hosp L3 Procedures: 89578 Advncd Care Plan 30 Min
--- NOTE | 2020-04-06 18:17 | PCS.PANDOC ---
PANDEMIC DOCUMENTATION INITIATED: Date: 04/06/2020 Time: 1814
[2020-04-06 19:27] LABS: BNP,B-Type NATRIURETIC PEPTIDE 44.5 pg/mL (0-100)
[2020-04-06 19:28] LABS: AST(SGOT) 15 U/L (15-37); Alanine Aminotransfer ALT/SGPT 20 U/L (13-56); Albumin, Serum 3.4 g/dL (3.2-5.0); Alkaline Phosphatase 82 U/L (45-117); Bilirubin, Direct 0.16 mg/dL (0.00-0.30); Globulin 4.5 g/dL (2.2-4.2); Protein, Total 7.9 g/dL (6.4-8.2)
[2020-04-06] MEDS: 0.9% Saline Lock 10 ML Syringe IV (19:45)
[2020-04-06] MEDS: 0.9% Normal Saline 1,000 ML 100 ML IV (19:46)
[2020-04-06] MEDS: Atenolol 50 MG Tablet PO (20:46)
[2020-04-06] MEDS: Pravastatin 20 MG Tablet PO (20:46)
[2020-04-06] MEDS: Pantoprazole Sodium 20 MG Tablet PO (20:46)
[2020-04-06] MEDS: Acetaminophen 325 MG Tablet 650 MG PO (20:48)
[2020-04-07] VITALS (10 sets, daily range): BP systolic 113–136; BP diastolic 64–74; PULSE 70–86; RESP 14–18; TEMP 36.9–37.4; O2SAT 87–96
[2020-04-07] MEDS: Enoxaparin 80 MG/0.8 ML Syringe SC (05:56)
[2020-04-07 06:27] LABS: Absolute Lymphocyte Count 1.41 X10^3/uL (0.83-4.51); Absolute Neutrophil Count 3.4 X10^3/uL (2.0-7.7); Basophil# 0.03 X10^3/uL; Basophil% 0.5 % (0-1); Eosinophil# 0.12 X10^3/uL; Eosinophils% 2.2 % (0-5); Hematocrit 34.2 % (37-47); Hemoglobin 11.4 g/dL (12.0-15.0); Lymphocyte # 1.41 X10^3/ul (4.0); Lymphocyte % 25.6 % (19-41); Mean Corp Hgb Conc 33.3 g/dL (32-36); Mean Corpuscular Hgb 29.3 pg (27.0-32.0); Mean Corpuscular Volume 87.9 fL (81-99); Mean Platelet Vol. 9.1 fl (6.2-12.0); Monocyte# 0.52 X10^3/uL; Monocyte% 9.5 % (0-10); NRBC Flagged by Analyzer 0 % (0-5); Neutrophil # 3.38 X10^3/uL (2.7-7.7); Neutrophil % 61.5 % (47-70); Platelet Count 155 K/mm3 (150-450); RBC Distribution Width CV 12.1 % (11.6-14.6); RBC Distribution Width SD 38.9 fl (35.1-43.9); Red Blood Count 3.89 M/mm3 (4.2-5.4); White Blood Count 5.5 K/mm3 (4.4-11.0)
[2020-04-07 06:51] LABS: ALB/GLOB Ratio 0.7 RATIO (0.9-2.4); AST(SGOT) 11 U/L (15-37); Alanine Aminotransfer ALT/SGPT 14 U/L (13-56); Albumin, Serum 2.5 g/dL (3.2-5.0); Alkaline Phosphatase 65 U/L (45-117); Anion Gap 7 (5-15); BUN 11 mg/dL (7-18); BUN/Creat Ratio 16.8 RATIO (10-20); Calcium,Total 8.1 mg/dL (8.5-10.1); Chloride 111 mmol/L (98-107); Creatinine, Serum 0.66 mg/dL (0.55-1.02); EST Glomerular Filtration Rate 93 mL/min (>60); Est Glom Filt Rate - Afr Amer 112 mL/min (>60); Estimated Creatinine Clearance 34.42 ml/min; Globulin 3.7 g/dL (2.2-4.2); Glucose 89 mg/dL (74-106); Potassium 3.6 mmol/L (3.5-5.1); Protein, Total 6.2 g/dL (6.4-8.2); Sodium Level 141 mmol/L (136-145)
[2020-04-07] MEDS: Acetaminophen 325 MG Tablet 650 MG PO ×3 (07:50→21:07)
[2020-04-07] MEDS: Pantoprazole Sodium 20 MG Tablet PO ×2 (07:51→21:07)
[2020-04-07] MEDS: amLODIPine 10 MG Tablet PO (07:51)
--- NOTE | 2020-04-07 08:51 | PCM.CONS.PUL ---
Problem List (1) Large hiatal hernia Status: Chronic (2) Hypertension Status: Chronic (3) Pulmonary embolism Status: Acute Qualifiers: Pulmonary embolism type: other Chronicity: acute Acute cor pulmonale presence: unspecified Qualified Code(s): I26.99 - Other pulmonary embolism without acute cor pulmonale (4) Esophageal spasm Status: Chronic (5) HLD (hyperlipidemia) Status: Chronic Reason for Consult Date of Consultation: 04/07/20 Reason for Consultation: Bilateral PE History of Present Illness: The patient is a 79 year old F, with past medical history listed below, who presented to [facility] on 04/06/2020 secondary to acute onset of right-sided chest pain that was pleuritic in nature. Patient states this was localized above her right breast. Patient denied any recent fall or trauma, but did have some mild shortness of breath. Patient states that this developed approximately 36 hours prior to presentation. Patient had no history of similar type symptoms, DVT or PE. Patient denied any recent travel, surgery or immobilization. Patient had had some generalized fatigue and malaise, but denied any hemoptysis, fever, chills, leg swelling or exposure to COVID-19. In the ER, patient was noted to be 98% on room air with a relatively unremarkable chest x-ray. Patient did have reproducible pain with deep inhalation. EKG was relatively unremarkable, but chest x-ray showed small bilateral pleural effusions. Laboratory work-up was relatively unremarkable except for an elevated D-dimer at 4.84. A CTA was obtained secondary to pleuritic pain showing multiple pulmonary emboli with bilateral pleural effusions. Patient did not have significant emphysematous changes. Patient was initiated on anticoagulation and admitted to the floor for further evaluation. Since being hospitalized, patient reports she is subjectively slightly improved. Patient stated that she continues to have the pain in her chest with deep inhalation. Patient denies any focal neurologic symptoms, GI symptoms, or bleeding complications. Patient denies any history of previous blood clots. Patient does report that she is followed regularly by Dr. Oakes secondary to a large hiatal hernia and requires dilations. Patient does not report a history of ulcers or other potential GI bleeding risk factors. Review of systems otherwise negative from a constitutional, HEENT, respiratory, cardiovascular, GI, genitourinary, musculoskeletal, skin, neurologic, psychiatric and hematologic system unless stated above. Past Medical History Past Medical History (Chronic Problems): Chronic Problems Hypertension (Chronic) Esophageal spasm (Chronic) HLD (hyperlipidemia) (Chronic) Large hiatal hernia (Chronic) Allergies codeine Allergy (Verified 04/06/20 13:07) Unknown Sulfa (Sulfonamide Antibiotics) Allergy (Verified 04/06/20 13:07) Unknown Home Medications: Ambulatory Orders Medication Instructions Recorded Amlodipine [Norvasc] 10 mg PO DAILY 07/14/18 Atenolol 50 mg PO QHS 07/14/18 Omeprazole [Prilosec] 20 mg PO BID 07/14/18 Pravastatin [Pravachol] 20 mg PO QHS 07/14/18 Ramipril [Altace] 10 mg PO DAILY 07/14/18 Surgical History: noncontributory, adenoidectomy, appendectomy, cholecystectomy, hysterectomy - With bilateral salpingo-oophorectomy Psychiatric History: No pertinent psych hx 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 Bilateral PEs with effusion noted. No significant mediastinal lymphadenopathy, but does have some atelectasis in the bases. Patient has a large hiatal hernia that extends to approximately 4 cm below the larynx. Patient reportedly has had a heart catheterization in the past by Dr. Srinivasan, but no records are available for review. Patient has never had a pulmonary function test - Physical Exam Vitals/I&O's: Vital Signs Temp Pulse Resp BP Pulse Ox 37.4 C H 79 14 136/74 H 92 04/07/20 07:40 04/07/20 07:40 04/07/20 07:40 04/07/20 07:40 04/07/20 07:40 Oxygen Delivery Method Room Air Weight: 76.6 kg Body Mass Index (BMI) 33.6 Intake and Output for Last 24 Hours 04/05/20 04/06/20 04/07/20 23:59 23:59 23:59 Intake Total 1240 / 1240 Balance 1240 / 1240 General: Alert, Oriented x3, Cooperative, No apparent distress, Well developed, Well nourished, - - Obese. Mild conversational dyspnea. HEENT: Atraumatic, PERRLA, EOMI, Normocephalic, - - No scleral icterus or injection noted Oral: Moist Mucosa, No Gingival or Mucosal Lesions/ Ulcerations Neck: Supple, No JVD, No Nodes, Trachea Midline Lungs: No rhonchi, No wheeze, No rales, Diminished, - - Possible rub noted in the right anterior chest Cardiovascular: Regular rate, Regular Rhythm, Normal S1, Normal S2, No murmurs, No rub noted, No Gallop Abdomen: Bowel Sounds Present, Soft, Non Tender, Non-Distended, Obese Extremities: No clubbing, No cyanosis, No edema Skin: No rashes, No breakdown Musculoskeletal: No Tenderness to Palpation of Joints or Extremities Lymphatic: No Cervical, Supraclavicular, or Inguinal Adenopathy Neurological: Cranial nerves II-XII grossly intact, Neuro grossly intact, Motor Exam 5/5 strength throughout Psych/Mental Status: Alert and oriented to time, place, person, mood and affect Microbiology Past 72 Hours 04/06/20 16:45 Mucosa - Nose SARS-CoV-2 Antigen (Rapid) - Final Laboratory Results 04/06/20 13:16: WBC 10.1, RBC 4.69, Hgb 13.9, Hct 41.6, MCV 88.7, MCH 29.6, MCHC 33.4, RDW Std Deviation 39.3, RDW Coeff of Lalit 12.2, Plt Count 222, MPV 9.1, Immature Gran % (Auto) 0.600, Neut % (Auto) 60.1, Lymph % (Auto) 28.7, [place] % (Auto) 9.0, Eos % (Auto) 1.2, Baso % (Auto) 0.4, Absolute Neuts (auto) 6.1, Absolute Lymphs (auto) 2.90, Nucleated RBC % 0 04/06/20 13:16: Sodium 139, Potassium 3.7, Chloride 106, Carbon Dioxide 25.0, Anion Gap 8, BUN 14, Creatinine 1.07 H, Estim Creat Clear Calc 32.17, Est GFR (MDRD) Af Amer 64, Est GFR (MDRD) Non-Af 53 L, BUN/Creatinine Ratio 13.1, Glucose 111 H, Calcium 9.2, Troponin I < 0.015 04/06/20 13:16: PT 13.7, INR 1.1, D-Dimer Quant (PE/DVT) 4.84 H* 04/06/20 13:16: Total Bilirubin 0.80, Direct Bilirubin 0.16, AST 15, ALT 20, Alkaline Phosphatase 82, Total Protein 7.9, Albumin 3.4, Globulin 4.5 H 04/06/20 13:16: B-Natriuretic Peptide 44.5 04/07/20 06:10: WBC 5.5, RBC 3.89 L, Hgb 11.4 L, Hct 34.2 L, MCV 87.9, MCH 29.3, MCHC 33.3, RDW Std Deviation 38.9, RDW Coeff of Lalit 12.1, Plt Count 155, MPV 9.1, Immature Gran % (Auto) 0.700, Neut % (Auto) 61.5, Lymph % (Auto) 25.6, [place] % (Auto) 9.5, Eos % (Auto) 2.2, Baso % (Auto) 0.5, Absolute Neuts (auto) 3.4, Absolute Lymphs (auto) 1.41, Nucleated RBC % 0 04/07/20 06:10: Sodium 141, Potassium 3.6, Chloride 111 H, Carbon Dioxide 23.0, Anion Gap 7, BUN 11, Creatinine 0.66, Estim Creat Clear Calc 34.42, Est GFR (MDRD) Af Amer 112, Est GFR (MDRD) Non-Af 93, BUN/Creatinine Ratio 16.8, Glucose 89, Calcium 8.1 L, Total Bilirubin 0.80, AST 11 L, ALT 14, Alkaline Phosphatase 65, Total Protein 6.2 L, Albumin 2.5 L, Globulin 3.7, Albumin/Globulin Ratio 0.7 L Current Medications Acetaminophen (Acetaminophen 325 Mg Tablet) 650 mg PO Q6H PRN PRN PRN Reason: Pain Score 1-10/Temp > 100.7 F Last Admin: 04/07/20 07:50 Dose: 650 mg Documented by: Amlodipine Besylate (Amlodipine 10 Mg Tablet) 10 mg PO DAILY [facility] Last Admin: 04/07/20 07:51 Dose: 10 mg Documented by: Atenolol (Atenolol 50 Mg Tablet) 50 mg PO QHS [facility] Last Admin: 04/06/20 20:46 Dose: 50 mg Documented by: Enoxaparin Sodium (Enoxaparin 80 Mg/0.8 Ml Syringe) 80 mg SC Q12@0600,1800 [facility] Last Admin: 04/07/20 05:56 Dose: 80 mg Documented by: Ondansetron HCl (Ondansetron 4 Mg/2 Ml Vial) 4 mg IV Q8H PRN PRN PRN Reason: NAUSEA/VOMITING Pantoprazole Sodium (Pantoprazole Sodium 20 Mg Tablet) 20 mg PO BID [facility] Last Admin: 04/07/20 07:51 Dose: 20 mg Documented by: Pravastatin Sodium (Pravastatin 20 Mg Tablet) 20 mg PO QHS [facility] Last Admin: 04/06/20 20:46 Dose: 20 mg Documented by: Sodium Chloride (0.9% Saline Lock 10 Ml Syringe) 10 - 40 ml IV UD PRN PRN Reason: SALINE FLUSH Last Admin: 04/06/20 19:45 Dose: 10 ml Documented by: Clinical Impression(s) from Imaging Studies Chest X-Ray 04/06/20 13:30 IMPRESSION: Left pleural effusion with left basilar infiltrate/atelectasis with blunting of the right costophrenic angle and mild increased markings at the right lung base. Electronically Signed: Itz Larkin MD at 14:06 EST , Service support , Chest CTA 04/06/20 14:16 IMPRESSION: Multiple bilateral pulmonary emboli more prominent in the right hemithorax. This is superimposed on small bilateral pleural effusions with left lower lobe infiltrate and atelectasis at the right lung base. Electronically Signed: Itz Larkin MD at 15:19 EST , Service support , Assessment/Plan All Active Problems Urinary tract infection (Acute) Sepsis (Acute) Sinus tachycardia by electrocardiogram (Acute) Pulmonary embolism (Acute) RECOMMENDATIONS: 1. Continue systemic anticoagulation with Lovenox 2. Possible transition to 10 a inhibitor tomorrow. Anticipate 6 months of anticoagulation 3. Obtain echocardiogram for evaluation of pulmonary pressures 4. Walking oximetry prior to discharge 5. No lower extremity Dopplers as this will not change plan of care 6. Aggressive pulmonary recruitment with incentive spirometer IMPRESSIONS: 1. Pleuritic chest pain and bilateral effusions secondary to acute bilateral PEs with pleurisy Low clinical suspicion for acute pneumonia at this time. Would monitor off of antibiotics. Patient has received Lovenox and is tolerating well. Will obtain an echocardiogram for evaluation of pulmonary artery pressures. Patient does not require lower extremity Dopplers as this will not change plan of care. Anticipate 6 months of anticoagulation for a nonprovoked clot. Patient should have a walking oximetry prior to discharge as exertional hypoxemia is possible. Aggressive incentive spirometer will limit possible infection risks. 2. Large hiatal hernia Patient will be at increased risk for ulcer formation. Will monitor for bleeding complications for 24 hours prior to transition to 10 a inhibitor. Patient should keep head of bed at 30 degrees or greater at all times. Aspiration event will be difficult to tolerate in the setting of bilateral PEs. Patient reportedly has had an endoscopy in the last year, but GI malignancy or other occult malignancy would increase risk for thrombotic complications. 3. Hypertension/hyperlipidemia/advanced age/history of esophageal spasms Complicates care, management, recovery and prognosis. Reasonable to hold ALEISHA inhibitor for 24 hours given dye load, but blood pressures are adequate at this time. Okay to continue with statin. Inpatient E&M: 30717 Init Hosp L2
--- NOTE | 2020-04-07 08:52 | ECHOD_ITS ---
Reason For Study: PHTN Procedure This was a 2D Doppler, Color Flow transthoracic echocardiogram. Exam performed portable in patient room. Left Ventricle Normal LV size. Left ventricular systolic function is normal. The estimated ejection fraction is 65 %. Stage 1 diastolic dysfunction. Right Ventricle Normal RV size. Normal systolic function. Atria Normal left atrium. Normal right atrium. Bubble contrast study negative for right to left interatrial shunt. Mitral Valve Normal mitral valve. Tricuspid Valve Normal tricuspid valve. Mild (1+) tricuspid valve insufficiency. Pulmonary artery systolic pressure is 40 mmHg. Aortic Valve Trisinus/trileaflet aortic valve. Normal aortic valve. Pulmonic Valve Normal pulmonic valve. Great Vessels Normal aortic root. The pulmonary artery is normal size. Normal inferior vena cava. Pericardium/Pleural No pericardial effusion. Medication Performed a rapid injection of agitated mix of 9 cc saline and 1cc air to assess for atrial septal defect. MMode/2D Measurements & Calculations LVIDd: 4.3 cm IVSd: 0.97 cm Ao root diam: 2.8 cm LVIDs: 2.4 cm LVPWd: 1.0 cm RVDd: 4.0 cm FS: 44.1 % LAV(MOD-bp): 54.0 ml LVAd ap4: 23.8 cm2 SV(MOD-sp4): 47.6 ml LAV(MOD-bp) Indexed: 30.6 ml/m2 EDV(MOD-sp4): 68.6 ml LAV(MOD-sp2): 54.8 ml EDV(sp4-el): 70.4 ml LAV(MOD-sp4): 52.6 ml LVAs ap4: 11.6 cm2 ESV(MOD-sp4): 21.0 ml ESV(sp4-el): 21.4 ml EF(MOD-sp4): 69.4 % EF(sp4-el): 69.6 % SV(sp4-el): 49.0 ml LA A4 area: 18.6 cm2 LA dimension(2D): 3.9 cm RA A4 area: 16.0 cm2 Doppler Measurements & Calculations MV E max michael: 88.3 cm/sec Lat Peak E' Michael: 6.3 cm/sec Med Peak E' Michael: 5.1 cm/sec MV A max michael: 93.2 cm/sec E/E' lat: 14.0 E/E' med: 17.3 MV E/A: 0.95 Ao V2 max: 151.0 cm/sec LV V1 max: 138.4 cm/sec PA V2 max: 91.7 cm/sec Ao max P.1 mmHg LV V1 max P.7 mmHg Ao V2 mean: 107.5 cm/sec Ao mean P.0 mmHg Ao V2 VTI: 32.1 cm TR max michael: 295.9 cm/sec TR max P.0 mmHg Interpretation Summary Normal LV size. Left ventricular systolic function is normal. The estimated ejection fraction is 65 %. Stage 1 diastolic dysfunction. Pulmonary artery systolic pressure is 40 mmHg. Bubble contrast study negative for right to left interatrial shunt. Ordering Physician: Clintno Faust Referring Physician: Umberto Koch Performed By: Janet Vang, YOLANDA, RVT
--- NOTE | 2020-04-07 11:02 | CASEMGMT ---
RN ASH assessment: Face to Face with patient for initial transition planning/care coordination assessment. RN CM introduced self and role at [facility], pt voices understanding and consents to assessment at this time. Pt is sitting up chair in no distress at this time. Pt is A/Ox4 at this time and answers all questions appropriately at this time. Pt's daughter is at bedside during assessment. Care providers, pharmacy, and demographics verified/updated at this time. Presentation: Pt c/o right sided chest pain that started last night along with SOB. Pt reports pain is worse with deep breath Admitting dx: Bilateral PE PCP: August Specialists: spring Horan; [facility]; thalia Faust-new referral this visit Preferred Pharmacy: [facility]pt to be sent home on Xarelto at discharge, this ALANA ALEMAN will call and check co-pay/coverage once e-scribed Insurance: MCR A/B, [employer] Prescription Benefit: [employer](MCR D) Living Will/HPOA: Pt setates has LW/HPOA and is aware that they are not on file at [facility] at this time. Pt states she can bring a copy in when able. LNOK: Shannan John, daughter Living Arrangements: Pt states lives alone in 1 story duplex at [facility] and states no concerns at home at this time. Pt states is independent with ADL's. Transportation: Pt states drives self and states no transportation concerns at this time. DME/HHC: Pt states has the following DME at home from : rollator, electric scooter, grab bars, and shower chair. Pt states these were from her and she doesn't use most of them. Pt states no need for any further DME at this time. Pt may need home oxygen at discharge and after provided a list of local DME companies, pt states she would choose [employer] at this time. Green sheet left on chart with [employer] quick script, if pt qualifies for home oxygen at discharge. Pt states no hx of HHC or SNF in the past. Pt states no concerns with going home at time of discharge. Pt states is retired. Pt states does not smoke cigarettes or drink ETOH. Pt voices no further concerns/needs at this time. CM to follow for home oxygen need and any further discharge planning/needs. Advised pt to ask for CM if any further questions/concerns/needs arise, voices understanding. Pt Goal: Home Plan: Home Edvin WARNER CM
--- NOTE | 2020-04-07 11:38 | CASEMGMT ---
Pt to be sent home on Xarelto at discharge and med e-scribed to [facility]. Call to [facility] and per pharmacist, pt's 21 day starting dose is $27.99 at this time and then the 20mg daily script is $485 at this time and per pharmacist, $445 is deductible at this time. This RN CM back to room to update pt and advise her to use Xarelto 30 day free coupon for the 20mg daily script at this time, voices understanding. Pt thanks this RN CM for update and suggestion at this time. Pt voices no further questions/concerns/needs at this time. [place] ALANA ALEMAN
--- NOTE | 2020-04-07 13:13 | PCM.PN.HOSP ---
<Andrea Gresham - Last Filed: 04/07/20 13:13> Patient Problems: Active and Suspected Problems Pulmonary embolism (Acute) Reason for Visit: PE Subjective: Mild SOB. Some hypoxia with ambulation. Mild pain right chest with deep breath. No cough. No LE swelling or pain. Vitals/I&O's: Vital Signs Temp Pulse Resp BP Pulse Ox 99.3 F H 70 14 136/74 H 94 04/07/20 07:40 04/07/20 12:37 04/07/20 07:40 04/07/20 07:40 04/07/20 10:11 Oxygen Flow Rate (L/min) [ 2 AMBULATION with Oxygen] Oxygen Flow Rate (L/min) 2 Oxygen Delivery Method Room Air Weight: 168 lb 13.985 oz Body Mass Index (BMI) 33.6 Intake and Output for Last 24 Hours 04/05/20 04/06/20 04/07/20 23:59 23:59 23:59 Intake Total 1859 Balance 1859 General: Alert, Oriented x3, Cooperative HEENT: Atraumatic, PERRLA, EOMI, Normocephalic Neck: Supple, No JVD, Negative Carotid Bruits Lungs: Clear to auscultation, Normal air movement Cardiovascular: Regular rate, No murmurs Abdomen: Bowel Sounds Present, Soft, Non Tender Extremities: No edema, Capillary Refill Less than 3 Seconds Skin: No rashes, No breakdown Musculoskeletal: No Tenderness to Palpation of Joints or Extremities Neurological: Cranial nerves II-XII grossly intact Psych/Mental Status: Normal Affect, Appropriate Microbiology Past 72 Hours 04/06/20 16:45 Mucosa - Nose SARS-CoV-2 Antigen (Rapid) - Final Laboratory Results 04/06/20 13:16: WBC 10.1, RBC 4.69, Hgb 13.9, Hct 41.6, MCV 88.7, MCH 29.6, MCHC 33.4, RDW Std Deviation 39.3, RDW Coeff of Lalit 12.2, Plt Count 222, MPV 9.1, Immature Gran % (Auto) 0.600, Neut % (Auto) 60.1, Lymph % (Auto) 28.7, Cobb % (Auto) 9.0, Eos % (Auto) 1.2, Baso % (Auto) 0.4, Absolute Neuts (auto) 6.1, Absolute Lymphs (auto) 2.90, Nucleated RBC % 0 04/06/20 13:16: Sodium 139, Potassium 3.7, Chloride 106, Carbon Dioxide 25.0, Anion Gap 8, BUN 14, Creatinine 1.07 H, Estim Creat Clear Calc 32.17, Est GFR (MDRD) Af Amer 64, Est GFR (MDRD) Non-Af 53 L, BUN/Creatinine Ratio 13.1, Glucose 111 H, Calcium 9.2, Troponin I < 0.015 04/06/20 13:16: PT 13.7, INR 1.1, D-Dimer Quant (PE/DVT) 4.84 H* 04/06/20 13:16: Total Bilirubin 0.80, Direct Bilirubin 0.16, AST 15, ALT 20, Alkaline Phosphatase 82, Total Protein 7.9, Albumin 3.4, Globulin 4.5 H 04/06/20 13:16: B-Natriuretic Peptide 44.5 04/07/20 06:10: WBC 5.5, RBC 3.89 L, Hgb 11.4 L, Hct 34.2 L, MCV 87.9, MCH 29.3, MCHC 33.3, RDW Std Deviation 38.9, RDW Coeff of Lalit 12.1, Plt Count 155, MPV 9.1, Immature Gran % (Auto) 0.700, Neut % (Auto) 61.5, Lymph % (Auto) 25.6, Cobb % (Auto) 9.5, Eos % (Auto) 2.2, Baso % (Auto) 0.5, Absolute Neuts (auto) 3.4, Absolute Lymphs (auto) 1.41, Nucleated RBC % 0 04/07/20 06:10: Sodium 141, Potassium 3.6, Chloride 111 H, Carbon Dioxide 23.0, Anion Gap 7, BUN 11, Creatinine 0.66, Estim Creat Clear Calc 34.42, Est GFR (MDRD) Af Amer 112, Est GFR (MDRD) Non-Af 93, BUN/Creatinine Ratio 16.8, Glucose 89, Calcium 8.1 L, Total Bilirubin 0.80, AST 11 L, ALT 14, Alkaline Phosphatase 65, Total Protein 6.2 L, Albumin 2.5 L, Globulin 3.7, Albumin/Globulin Ratio 0.7 L Current Medications Acetaminophen (Acetaminophen 325 Mg Tablet) 650 mg PO Q6H PRN PRN PRN Reason: Pain Score 1-10/Temp > 100.7 F Last Admin: 04/07/20 07:50 Dose: 650 mg Documented by: Amlodipine Besylate (Amlodipine 10 Mg Tablet) 10 mg PO DAILY [facility] Last Admin: 04/07/20 07:51 Dose: 10 mg Documented by: Atenolol (Atenolol 50 Mg Tablet) 50 mg PO QHS [facility] Last Admin: 04/06/20 20:46 Dose: 50 mg Documented by: Ondansetron HCl (Ondansetron 4 Mg/2 Ml Vial) 4 mg IV Q8H PRN PRN PRN Reason: NAUSEA/VOMITING Pantoprazole Sodium (Pantoprazole Sodium 20 Mg Tablet) 20 mg PO BID [facility] Last Admin: 04/07/20 07:51 Dose: 20 mg Documented by: Pravastatin Sodium (Pravastatin 20 Mg Tablet) 20 mg PO QHS [facility] Last Admin: 04/06/20 20:46 Dose: 20 mg Documented by: [facility] Sodium Chloride (0.9% Saline Lock 10 Ml Syringe) 10 - 40 ml IV UD PRN PRN Reason: SALINE FLUSH Last Admin: 04/06/20 19:45 Dose: 10 ml Documented by: STROKE Vital Signs/Narrative: Vital Signs Pulse Pulse Ox Pulse Ox Pulse Ox 04/07/20 12:37 70 04/07/20 10:11 87 95 94 Medical Necessity - Tobacco Use Smoking Status: Never smoker Tobacco Use: Non-smoker Assessment/Plan All Active Problems Pulmonary embolism (Acute) 1. BL PE's - no prior hx. See CTA. Xarelto started. Hypoxia with ambulation - continue Incentive spirometer. Hopefully home tomorrow with no o2. -echo pending -pulm following 2. HTN - stable 3. HLD - statin 4. Hx esophageal spasm - yearly dilatation per Dr. Oakes. Continue PPI. DC planning: return to independent living when appropriate. walking pulse ox prior to DC This patient was seen by Andrea Gresham PA-C under the supervision of Dr. Brennan <Violet Brennan E - Last Filed: 04/07/20 14:02> Vitals/I&O's: Vital Signs Temp Pulse Resp BP Pulse Ox 99.3 F H 70 14 136/74 H 94 04/07/20 07:40 04/07/20 12:37 04/07/20 07:40 04/07/20 07:40 04/07/20 10:11 Oxygen Flow Rate (L/min) [ 2 AMBULATION with Oxygen] Oxygen Flow Rate (L/min) 2 Oxygen Delivery Method Room Air Weight: 168 lb 13.985 oz Body Mass Index (BMI) 33.6 Intake and Output for Last 24 Hours 04/05/20 04/06/20 04/07/20 23:59 23:59 23:59 Intake Total 1859 / 186 Balance 186 / 1859 Microbiology Past 72 Hours 04/06/20 16:45 Mucosa - Nose SARS-CoV-2 Antigen (Rapid) - Final Laboratory Results 04/06/20 13:16: D-Dimer Quant (PE/DVT) 4.84 H* 04/06/20 13:16: Total Bilirubin 0.80, Direct Bilirubin 0.16, AST 15, ALT 20, Alkaline Phosphatase 82, Total Protein 7.9, Albumin 3.4, Globulin 4.5 H 04/06/20 13:16: B-Natriuretic Peptide 44.5 04/07/20 06:10: WBC 5.5, RBC 3.89 L, Hgb 11.4 L, Hct 34.2 L, MCV 87.9, MCH 29.3, MCHC 33.3, RDW Std Deviation 38.9, RDW Coeff of Lalit 12.1, Plt Count 155, MPV 9.1, Immature Gran % (Auto) 0.700, Neut % (Auto) 61.5, Lymph % (Auto) 25.6, Cobb % (Auto) 9.5, Eos % (Auto) 2.2, Baso % (Auto) 0.5, Absolute Neuts (auto) 3.4, Absolute Lymphs (auto) 1.41, Nucleated RBC % 0 04/07/20 06:10: Sodium 141, Potassium 3.6, Chloride 111 H, Carbon Dioxide 23.0, Anion Gap 7, BUN 11, Creatinine 0.66, Estim Creat Clear Calc 34.42, Est GFR (MDRD) Af Amer 112, Est GFR (MDRD) Non-Af 93, BUN/Creatinine Ratio 16.8, Glucose 89, Calcium 8.1 L, Total Bilirubin 0.80, AST 11 L, ALT 14, Alkaline Phosphatase 65, Total Protein 6.2 L, Albumin 2.5 L, Globulin 3.7, Albumin/Globulin Ratio 0.7 L Current Medications Acetaminophen (Acetaminophen 325 Mg Tablet) 650 mg PO Q6H PRN PRN PRN Reason: Pain Score 1-10/Temp > 100.7 F Last Admin: 04/07/20 07:50 Dose: 650 mg Documented by: Amlodipine Besylate (Amlodipine 10 Mg Tablet) 10 mg PO DAILY [facility] Last Admin: 04/07/20 07:51 Dose: 10 mg Documented by: Atenolol (Atenolol 50 Mg Tablet) 50 mg PO QHS [facility] Last Admin: 04/06/20 20:46 Dose: 50 mg Documented by: Ondansetron HCl (Ondansetron 4 Mg/2 Ml Vial) 4 mg IV Q8H PRN PRN PRN Reason: NAUSEA/VOMITING Pantoprazole Sodium (Pantoprazole Sodium 20 Mg Tablet) 20 mg PO BID [facility] Last Admin: 04/07/20 07:51 Dose: 20 mg Documented by: Pravastatin Sodium (Pravastatin 20 Mg Tablet) 20 mg PO QHS [facility] Last Admin: 04/06/20 20:46 Dose: 20 mg Documented by: [facility]aroxaban ([facility] 15 Mg [facility]t) [facility] Sodium Chloride (0.9% Saline Lock 10 Ml Syringe) 10 - 40 ml IV UD PRN PRN Reason: SALINE FLUSH Last Admin: 04/06/20 19:45 Dose: 10 ml Documented by: STROKE Vital Signs/Narrative: Vital Signs Pulse Pulse Ox Pulse Ox Pulse Ox 04/07/20 12:37 70 04/07/20 10:11 87 95 94 Assessment/Plan Hospitalist note: I am seeing this patient in conjunction with Andrea Gresham. I independently seen and examined the patient. Progress note above, laboratory data and imaging studies reviewed and I concur with above treatment plan. Today, she is feeling better. Complains of mild shortness of breath but improved. She has been having some hypoxia with ambulation. Other vital signs are stable. - Physical Exam General: Alert, Oriented x3, Cooperative, No apparent distress. HEENT: Atraumatic, PERRLA, EOMI. Neck: Supple, No JVD, Negative Carotid Bruits, Trachea Midline, Thyroid Normal. Lungs: Diminished breath sounds bilateral, otherwise clear no rhonchi, No wheeze, No rales. Cardiovascular: Regular rate, Regular Rhythm, Normal S1, Normal S2, PMI Normal. Abdomen: Bowel Sounds Present, Soft, Non Tender, Non-Distended, No Hepato-splenomegaly. Extremities: No clubbing, No cyanosis, No edema Skin: No rashes, No breakdown Neurological: Cranial nerves are intact, neuro grossly intact Vital Signs are stable. Assessment and plan: #1 acute multiple bilateral pulmonary emboli/hypoxia: More prominent on the right hemithorax. She is on Lovenox stable to twice daily. Her vital signs are stable, requiring some oxygen. She will be started on Xarelto later tonight. Echocardiogram done, awaiting the report. COVID-19 antigen was negative. Pulmonology consulted. Possible DC home tomorrow if hypoxia resolves. #2 other chronic medical problems: Stable, continue current medication as above. This note was generated with [employer] dictation software. It may contain incorrect words, spelling, and punctuation that were not noted in checking the note before signing. Inpatient E&M: 46523 Subs Hosp L2
[2020-04-07] MEDS: Rivaroxaban 15 MG Tablet PO (16:56)
[2020-04-07] MEDS: Pravastatin 20 MG Tablet PO (21:07)
[2020-04-07] MEDS: Atenolol 50 MG Tablet PO (21:07)
[2020-04-08 02:59] VITALS: PULSE 71
[2020-04-08 03:10] VITALS: BP 118/65; PULSE 78; RESP 18; TEMP 36.7; O2SAT 96
[2020-04-08 07:01] VITALS: PULSE 89
--- NOTE | 2020-04-08 07:54 | PCM.PN.PUL ---
Patient Problems: Active and Suspected Problems Pulmonary embolism (Acute) Subjective: Patient did well overnight. Patient was transitioned to Xarelto therapy yesterday and denies any bleeding complications this morning. Patient states exercise tolerance is slowly improving. Patient had 2 walking oximetry's yesterday. Patient did require oxygen with the first, but the second patient reportedly had good saturations. Objective: Echocardiogram showed preserved ejection fraction, but pulmonary artery pressures are elevated at 40 mmHg. - Physical Exam Vitals/I&O's: Vital Signs Temp Pulse Resp BP Pulse Ox 36.7 C 78 18 118/65 96 04/08/20 03:10 04/08/20 03:10 04/08/20 03:10 04/08/20 03:10 04/08/20 03:10 Oxygen Flow Rate (L/min) [ 2 AMBULATION with Oxygen] Oxygen Flow Rate (L/min) 2 Oxygen Delivery Method Room Air Weight: 76.5 kg Body Mass Index (BMI) 33.6 Intake and Output for Last 24 Hours 04/06/20 04/07/20 04/08/20 23:59 23:59 23:59 Intake Total 2310 / 2430 120 / 120 Balance 2310 / 2430 120 / 120 General: Alert, Oriented x3, Cooperative, No apparent distress, Well developed, Well nourished, - - Obese. Speaking in full sentences. HEENT: Atraumatic, PERRLA, EOMI, Normocephalic, - - No scleral icterus or injection noted Oral: Moist Mucosa, No Gingival or Mucosal Lesions/ Ulcerations Neck: Supple, No JVD, No Nodes, Trachea Midline Lungs: Clear to auscultation, Normal air movement, No rhonchi, No wheeze, No rales Cardiovascular: Regular rate, Regular Rhythm, Normal S1, Normal S2, No murmurs, No rub noted, No Gallop Abdomen: Bowel Sounds Present, Soft, Non Tender, Non-Distended, Obese Extremities: No clubbing, No cyanosis, No edema Skin: No rashes, No breakdown Musculoskeletal: No Tenderness to Palpation of Joints or Extremities Lymphatic: No Cervical, Supraclavicular, or Inguinal Adenopathy Neurological: Cranial nerves II-XII grossly intact, Neuro grossly intact, Motor Exam 5/5 strength throughout Psych/Mental Status: Alert and oriented to time, place, person, mood and affect Microbiology Past 72 Hours 04/06/20 16:45 Mucosa - Nose SARS-CoV-2 Antigen (Rapid) - Final Current Medications Acetaminophen (Acetaminophen 325 Mg Tablet) 650 mg PO Q6H PRN PRN PRN Reason: Pain Score 1-10/Temp > 100.7 F Last Admin: 04/07/20 21:07 Dose: 650 mg Documented by: Amlodipine Besylate (Amlodipine 10 Mg Tablet) 10 mg PO DAILY [facility] Last Admin: 04/07/20 07:51 Dose: 10 mg Documented by: Atenolol (Atenolol 50 Mg Tablet) 50 mg PO QHS [facility] Last Admin: 04/07/20 21:07 Dose: 50 mg Documented by: Ondansetron HCl (Ondansetron 4 Mg/2 Ml Vial) 4 mg IV Q8H PRN PRN PRN Reason: NAUSEA/VOMITING Pantoprazole Sodium (Pantoprazole Sodium 20 Mg Tablet) 20 mg PO BID [facility] Last Admin: 04/07/20 21:07 Dose: 20 mg Documented by: Pravastatin Sodium (Pravastatin 20 Mg Tablet) 20 mg PO QHS [facility] Last Admin: 04/07/20 21:07 Dose: 20 mg Documented by: [facility]aroxaban ([facility] Mg [facility] Last Admin: 04/07/20 16:56 Dose: 15 mg Documented by: Sodium Chloride (0.9% Saline Lock 10 Ml Syringe) 10 - 40 ml IV UD PRN PRN Reason: SALINE FLUSH Last Admin: 04/06/20 19:45 Dose: 10 ml Documented by: Medical Necessity - Tobacco Use Smoking Status: Never smoker Tobacco Use: Non-smoker Assessment/Plan All Active Problems Pulmonary embolism (Acute) RECOMMENDATIONS: 1. Walking oximetry on room air 2. Continue Xarelto therapy. Anticipate 6 months of anticoagulation 3. Repeat echocardiogram in 4 to 6 weeks after meets with nurse practitioner 4. Follow-up with nurse practitioner in 4 weeks 5. Potential discharge later today if able to ambulate on room air IMPRESSIONS: 1. Pleuritic chest pain and bilateral effusions secondary to acute bilateral PEs with pleurisy Improved. Low clinical suspicion for acute pneumonia at this time. Would monitor off of antibiotics. Patient has received Xarelto and is tolerating well. Echocardiogram does show elevated pulmonary artery pressures. This will need to be repeated in 4 to 6 weeks to ensure resolution. Patient does not require lower extremity Dopplers as this will not change plan of care. Anticipate 6 months of anticoagulation minimum for a nonprovoked clot. Patient can likely be discharged if able to tolerate ambulation on room air 2. Large hiatal hernia Patient will be at increased risk for ulcer formation. Patient tolerating 10 a inhibitor. Patient should keep head of bed at 30 degrees or greater at all times. Aspiration event will be difficult to tolerate in the setting of bilateral PEs. Patient reportedly has had an endoscopy in the last year, but GI malignancy or other occult malignancy would increase risk for thrombotic complications. 3. Hypertension/hyperlipidemia/advanced age/history of esophageal spasms Complicates care, management, recovery and prognosis. Reasonable to hold ALEISHA inhibitor for 24 hours given dye load, but blood pressures are adequate at this time. Okay to continue with statin. Inpatient E&M: 09775 Subs Hosp L2
[2020-04-08 08:38] VITALS: BP 133/63; PULSE 81; RESP 16; TEMP 36.6; O2SAT 96
[2020-04-08 08:41] VITALS: O2SAT 92; O2SAT 96
[2020-04-08] MEDS: Pantoprazole Sodium 20 MG Tablet PO (08:45)
[2020-04-08] MEDS: amLODIPine 10 MG Tablet PO (08:45)
[2020-04-08] MEDS: Rivaroxaban 15 MG Tablet PO (08:46)
--- NOTE | 2020-04-08 10:06 | PCM.DC ---
- Discharge Diagnoses Current Active Problems: Current Active and Chronic Problems Hypertension (Chronic) Pulmonary embolism (Acute) Esophageal spasm (Chronic) HLD (hyperlipidemia) (Chronic) Large hiatal hernia (Chronic) You will use the following diet at home:: Cardiac Your food should be the consistency of: Regular Your liquids should be the consistency of: Regular/Thin Discharge Activity: Return to Normal Activity Additional Instructions: Please continue to use the incentive spirometer 10 times per hour that you are awake, for at least 5 days, or as long as you continue to feel short of breath. Allergies/Adverse Reactions: Allergies codeine Allergy (Verified 04/06/20 13:07) Unknown Sulfa (Sulfonamide Antibiotics) Allergy (Verified 04/06/20 13:07) Unknown Medications to take at Discharge Amlodipine [Norvasc] 10 mg PO DAILY 07/14/18 Atenolol 50 mg PO QHS 07/14/18 Omeprazole [Prilosec] 20 mg PO BID 07/14/18 Pravastatin [Pravachol] 20 mg PO QHS 07/14/18 Ramipril [Altace] 10 mg PO DAILY 07/14/18 Rivaroxaban [Xarelto] 15 mg PO BID #42 tab 04/07/20 Rivaroxaban [Xarelto] 20 mg PO DAILY #30 tab 04/07/20 The following prescriptions were given: Rivaroxaban [Xarelto] 15 mg PO BID #42 tab Transmission Status: Received by [id number] Rivaroxaban [Xarelto] 20 mg PO DAILY #30 tab Transmission Status: Received by [id number] Primary Care Physician: Umberto Koch MD [Primary Care Provider] - Please follow up with your Primary Care Physician in: 1-2 weeks Test Results: Test results from this visit will be discussed in further detail at your follow-up appointment, if applicable. Please Follow Up With: Lisandra Purdy NP, [employer] - Pulmonology When: 4 weeks Proposed Discharge Date: 04/08/20
--- NOTE | 2020-04-08 11:52 | DS.PCM_ITS ---
<Andrea Gresham - Last Filed: 04/08/20 11:52> Discharge Date and Diagnosis - Problem List Patient Problems: Active and Suspected Problems Pulmonary embolism (Acute) Date of Admission: 04/06/20 Date of Discharge: 04/08/20 - Primary Discharge Diagnosis Acute Problems: Active Problems Pulmonary embolism (Acute) - Secondary Discharge Diagnosis Chronic Problems: Chronic Problems Hypertension (Chronic) Esophageal spasm (Chronic) HLD (hyperlipidemia) (Chronic) Large hiatal hernia (Chronic) Hospital Course and Treatment Imaging Results: RAD/Chest 1 View (Portable) IMPRESSION: Left pleural effusion with left basilar infiltrate/atelectasis with blunting of the right costophrenic angle and mild increased markings at the right lung base. CT/CTA Chest W/WO Contrast IMPRESSION: Multiple bilateral pulmonary emboli more prominent in the right hemithorax. This is superimposed on small bilateral pleural effusions with left lower lobe infiltrate and atelectasis at the right lung base. 2D TTE: Interpretation Summary Normal LV size. Left ventricular systolic function is normal. The estimated ejection fraction is 65 %. Stage 1 diastolic dysfunction. Pulmonary artery systolic pressure is 40 mmHg. Bubble contrast study negative for right to left interatrial shunt. Consults: Govind - Pulmonology Operations: None Procedures: 2-D Echocardiogram Summary of Care Provided: Hospital Course: The patient is a 79 year old F wioth pmhx as above no prior DVT/PE who presented to the ER with SOB with exertion and pleuritic chest pain that started the night prior. She had a CTA chest which showed bilateral PEs and was subsequently admitted to the PCU on lovenox. She had no LE edema or pain. She had no recent trauma or travel. She was not on any obvious pro-thrombotic agents. The following day she had some hypoxia to 88% with ambulation. Pulmonary medicine was consulted and an echo was obtained. This showed PASP of 40% c/w some pulm htn likely due to PEs. She was transitioned to xarelto. The following day she was ambualated and had no hypoxia. She was discharged home on xarelto. She will need to follow up with pulmonary medicine in 4 weeks and have a repeat echo. She will follow up with PCP in 1-2 weeks. This patient was seen by Andrea Gresham PA-C under the supervision of Dr. Brennan.[] Patient Problems: Active and Suspected Problems Pulmonary embolism (Acute) - Physical Exam Vitals/I&O's: Vital Signs Temp Pulse Resp BP Pulse Ox 97.8 F 81 16 133/63 H 96 04/08/20 08:38 04/08/20 08:38 04/08/20 08:38 04/08/20 08:38 04/08/20 08:41 Oxygen Flow Rate (L/min) [ 2 AMBULATION with Oxygen] Oxygen Flow Rate (L/min) [ 0 AMBULATING on Room Air] Oxygen Flow Rate (L/min) [At 0 REST on Room Air] Oxygen Flow Rate (L/min) 2 Oxygen Delivery Method Room Air Weight: 168 lb 10.458 oz Body Mass Index (BMI) 33.6 Intake and Output for Last 24 Hours 04/06/20 04/07/20 04/08/20 23:59 23:59 23:59 Intake Total 2310 / 2430 120 / 120 Balance 2310 / 2430 120 / 120 General: Alert, Oriented x3, Cooperative HEENT: Atraumatic, PERRLA, EOMI, Normocephalic Neck: Supple, No JVD, Negative Carotid Bruits Lungs: Clear to auscultation, Normal air movement Cardiovascular: Regular rate, No murmurs Abdomen: Bowel Sounds Present, Soft, Non Tender Extremities: No edema, Capillary Refill Less than 3 Seconds Skin: No rashes, No breakdown Musculoskeletal: No Tenderness to Palpation of Joints or Extremities Neurological: Cranial nerves II-XII grossly intact Psych/Mental Status: Normal Affect, Appropriate, Alert and oriented to time, place, person, mood and affect Microbiology Past 72 Hours 04/06/20 16:45 Mucosa - Nose SARS-CoV-2 Antigen (Rapid) - Final Current Medications Acetaminophen (Acetaminophen 325 Mg Tablet) 650 mg PO Q6H PRN PRN PRN Reason: Pain Score 1-10/Temp > 100.7 F Last Admin: 04/07/20 21:07 Dose: 650 mg Documented by: Amlodipine Besylate (Amlodipine 10 Mg Tablet) 10 mg PO DAILY [facility] Last Admin: 04/08/20 08:45 Dose: 10 mg Documented by: Atenolol (Atenolol 50 Mg Tablet) 50 mg PO QHS [facility] Last Admin: 04/07/20 21:07 Dose: 50 mg Documented by: Ondansetron HCl (Ondansetron 4 Mg/2 Ml Vial) 4 mg IV Q8H PRN PRN PRN Reason: NAUSEA/VOMITING Pantoprazole Sodium (Pantoprazole Sodium 20 Mg Tablet) 20 mg PO BID [facility] Last Admin: 04/08/20 08:45 Dose: 20 mg Documented by: Pravastatin Sodium (Pravastatin 20 Mg Tablet) 20 mg PO QHS [facility] Last Admin: 04/07/20 21:07 Dose: 20 mg Documented by: [facility]oxaban ([facility] 15 [facility]) [facility] Last Admin: 04/08/20 08:46 Dose: 15 mg Documented by: Sodium Chloride (0.9% Saline Lock 10 Ml Syringe) 10 - 40 ml IV UD PRN PRN Reason: SALINE FLUSH Last Admin: 04/06/20 19:45 Dose: 10 ml Documented by: Discharge Diet: Low fat/ Low Cholesterol, 2000 mg Sodium Diet Discharge Activity: Return to Normal Activity Home Medications: Medications to take at Discharge Amlodipine [Norvasc] 10 mg PO DAILY 07/14/18 Atenolol 50 mg PO QHS 07/14/18 Omeprazole [Prilosec] 20 mg PO BID 07/14/18 Pravastatin [Pravachol] 20 mg PO QHS 07/14/18 Ramipril [Altace] 10 mg PO DAILY 07/14/18 Rivaroxaban [Xarelto] 15 mg PO BID #42 tab 04/07/20 Rivaroxaban [Xarelto] 20 mg PO DAILY #30 tab 04/07/20 Following Prescriptions Were Given to Patient: Rivaroxaban [Xarelto] 15 mg PO BID #42 tab Transmission Status: Received by [id number] Rivaroxaban [Xarelto] 20 mg PO DAILY #30 tab Transmission Status: Received by [id number] Primary Care Physician: Umberto Koch MD [Primary Care Provider] - Please follow up with your Primary Care Physician in: 1-2 weeks Please Follow Up With: Lisandra Purdy NP, SOFTWARE INTERN-C - Pulmonology When: 4 weeks Disposition: Home Minutes spent on discharge:: 35 Patient Condition:: Stable Medical Necessity - Tobacco Use Smoking Status: Never smoker Tobacco Use: Non-smoker Meaningful Use Info Meaningful Use Diagnoses (Choose all that apply): VTE - VTE Anticoag overlap given w/in hospital stay or rx'd at dc?: No Reason overlap not ordered, prescribed, or given for 5 days: Procedure Not Indicated <Violet Brennan - Last Filed: 04/08/20 12:05> Discharge Date and Diagnosis - Primary Discharge Diagnosis Acute Problems: Active Problems Pulmonary embolism (Acute) - Secondary Discharge Diagnosis Chronic Problems: Chronic Problems Hypertension (Chronic) Esophageal spasm (Chronic) HLD (hyperlipidemia) (Chronic) Large hiatal hernia (Chronic) Hospital Course and Treatment Summary of Care Provided: Hospitalist note: Discharge summary above reviewed and I concur with above discharge treatment plan. Patient presented to the emergency room because of right-sided pleuritic chest pain as well as exertional shortness of breath. Chest x-ray revealed small bilateral pleural effusion, more on the left side with atelectasis. She was found to have elevated D-dimer for which she underwent CTA chest and she was found to have multiple bilateral pulmonary emboli more prominent on the right hemithorax. She was admitted to PCU, started on therapeutic Lovenox twice daily. Her other routine blood work was unremarkable. EKG was negative for acute ischemic changes. Troponin was negative. Patient did have some hypoxia and she required up to 2 L of oxygen. 2D echocardiogram revealed ejection fraction of 65%, normal LV size and function, pulmonary artery pressure of 40% probably due to acute multiple PEs. She was transitioned to p.o. Xarelto. On the day of discharge, ambulatory pulse ox performed and pulse ox was 92% on room air with ambulation. Her vital signs are stable. Patient discharged home in a stable condition, discharged on Xarelto for anticoagulation, continued on her previous medications without any changes, plan to follow-up with pulmonology in 4 weeks, recommended follow-up with PCP in 1 to 2 weeks. This note was generated with [employer] dictation software. It may contain incorrect words, spelling, and punctuation that were not noted in checking the note before signing. - Physical Exam Vitals/I&O's: Vital Signs Temp Pulse Resp BP Pulse Ox 97.8 F 81 16 133/63 H 96 04/08/20 08:38 04/08/20 08:38 04/08/20 08:38 04/08/20 08:38 04/08/20 08:41 Oxygen Flow Rate (L/min) [ 2 AMBULATION with Oxygen] Oxygen Flow Rate (L/min) [ 0 AMBULATING on Room Air] Oxygen Flow Rate (L/min) [At 0 REST on Room Air] Oxygen Flow Rate (L/min) 2 Oxygen Delivery Method Room Air Weight: 168 lb 10.458 oz Body Mass Index (BMI) 33.6 Intake and Output for Last 24 Hours 04/06/20 04/07/20 04/08/20 23:59 23:59 23:59 Intake Total 2310 / 2430 120 / 120 Balance 2310 / 2430 120 / 120 Microbiology Past 72 Hours 04/06/20 16:45 Mucosa - Nose SARS-CoV-2 Antigen (Rapid) - Final Current Medications Acetaminophen (Acetaminophen 325 Mg Tablet) 650 mg PO Q6H PRN PRN PRN Reason: Pain Score 1-10/Temp > 100.7 F Last Admin: 04/07/20 21:07 Dose: 650 mg Documented by: Amlodipine Besylate (Amlodipine 10 Mg Tablet) 10 mg PO DAILY [facility] Last Admin: 04/08/20 08:45 Dose: 10 mg Documented by: Atenolol (Atenolol 50 Mg Tablet) 50 mg PO QHS [facility] Last Admin: 04/07/20 21:07 Dose: 50 mg Documented by: Ondansetron HCl (Ondansetron 4 Mg/2 Ml Vial) 4 mg IV Q8H PRN PRN PRN Reason: NAUSEA/VOMITING Pantoprazole Sodium (Pantoprazole Sodium 20 Mg Tablet) 20 mg PO BID [facility] Last Admin: 04/08/20 08:45 Dose: 20 mg Documented by: Pravastatin Sodium (Pravastatin 20 Mg Tablet) 20 mg PO QHS [facility] Last Admin: 04/07/20 21:07 Dose: 20 mg Documented by: Rivaroxaban ([facility]aban 15 Mg Tablet) [facility] Last Admin: 04/08/20 08:46 Dose: 15 mg Documented by: Sodium Chloride (0.9% Saline Lock 10 Ml Syringe) 10 - 40 ml IV UD PRN PRN Reason: SALINE FLUSH Last Admin: 04/06/20 19:45 Dose: 10 ml Documented by: Disposition: Home Minutes spent on discharge:: 32 Patient Condition:: Stable Meaningful Use Info Meaningful Use Diagnoses (Choose all that apply): VTE - VTE Anticoag overlap given w/in hospital stay or rx'd at fl?: No Reason overlap not ordered, prescribed, or given for 5 days: Procedure Not Indicated Inpatient E&M: [id number] [facility]
== END 2020-04-08 12:10 | disposition home or self-care (01) | DRG 176 ==
LOC: ED 14:00 → PCU 16:42
PROVIDERS: Admitting Provider Internal Medicine; Emergency Provider Emergency Medicine; PCP Family Medicine; Visit Provider Hospitalist
DX: I26.99 Other pulmonary embolism without acute cor pulmonale (principal); J90 Pleural effusion, not elsewhere classified; J98.11 Atelectasis; I10 Essential (primary) hypertension; E78.5 Hyperlipidemia, unspecified; K22.4 Dyskinesia of esophagus; Z79.899 Other long term (current) drug therapy; Z66 Do not resuscitate; E66.9 Obesity, unspecified; Z68.33 Body mass index [BMI] 33.0-33.9, adult; K44.9 Diaphragmatic hernia without obstruction or gangrene; R09.02 Hypoxemia
CPT/HCPCS: 71045; 71275; 80048; 80053; 80076; 83880; 84484; 85025; 85379; 85610; 87426; 93005; 93306; 97161; 97802; 99251; 99285; J7030; Q9967; A4216; G0463

== ENCOUNTER → 2020-05-15 13:50 | Outpatient (CLI) | payer MEDICARE, OTHER, SELFPAY ==
[2020-05-09 08:44] VITALS: BMI 32.1
--- NOTE | 2020-05-15 13:53 | ECHOD_ITS ---
Version 2 Reason For Study: Dyspnea/SOB Procedure This was a 2D Doppler, Color Flow transthoracic echocardiogram. Left Ventricle Normal LV size. Left ventricular systolic function is normal. The estimated ejection fraction is 65 %. Stage 1 diastolic dysfunction. No regional wall motion abnormalities noted. Right Ventricle Normal RV size. Normal systolic function. Atria Normal left atrium. Normal right atrium. Mitral Valve Normal mitral valve. Mild (1+) eccentric mitral valve insufficiency. Tricuspid Valve Normal tricuspid valve. Unable to estimate RV systolic pressure due to inadequate jet, pulmonary artery pressure probably normal. Aortic Valve Normal aortic valve. Pulmonic Valve Normal pulmonic valve. Great Vessels Normal aortic root. The pulmonary artery is normal size. Normal inferior vena cava. Pericardium/Pleural No pericardial effusion. MMode/2D Measurements & Calculations LVIDd: 4.6 cm IVSd: 0.89 cm Ao root diam: 3.2 cm LVIDs: 2.5 cm LVPWd: 0.92 cm LA dimension: 3.5 cm RVDd: 3.1 cm FS: 45.3 % LAV(MOD-bp): 44.6 ml LA A4 area: 16.9 cm2 RA A4 area: 13.2 cm2 LAV(MOD-bp) Indexed: 25.3 ml/m2 LAV(MOD-sp2): 43.8 ml LAV(MOD-sp4): 47.2 ml Time Measurements MV dec time: 0.19 sec Doppler Measurements & Calculations MV E max michael: 82.5 cm/sec Lat Peak E' Michael: 9.2 cm/sec Med Peak E' Michael: 6.8 cm/sec MV A max michael: 99.8 cm/sec E/E' lat: 8.9 E/E' med: 12.2 MV E/A: 0.83 MV V2 max: 102.1 cm/sec MV P1/2t max michael: 88.6 cm/sec Ao V2 max: 146.5 cm/sec MV max P.2 mmHg MV P1/2t: 83.2 msec Ao max P.6 mmHg MV V2 mean: 56.7 cm/sec MV dec slope: 312.0 cm/sec2 MV mean P.6 mmHg MVA(P1/2t): 2.6 cm2 MV V2 VTI: 30.1 cm LV V1 max: 126.2 cm/sec PA V2 max: 90.5 cm/sec LV V1 max P.4 mmHg Interpretation Summary Normal LV size. Left ventricular systolic function is normal. The estimated ejection fraction is 65 %. Stage 1 diastolic dysfunction. Ordering Physician: Lisandra Purdy Referring Physician: Umberto Koch Performed By: Kd Lei RCS
== END ==
PROVIDERS: PCP Family Medicine; Referring Provider Nurse Practitioner Acute Care; Visit Provider Nurse Practitioner Acute Care
DX: R06.02 Shortness of breath (principal); R06.00 Dyspnea, unspecified
CPT/HCPCS: 93306

== ENCOUNTER 2020-10-22 07:28 | Emergency (ER) | payer MEDICARE, OTHER, SELFPAY ==
[2020-05-31 08:43] VITALS: BMI 32.3
[2020-10-22 07:28] VITALS: BP 159/89; PULSE 75; RESP 16; TEMP 36.6; O2SAT 98; BMI 30.3
--- NOTE | 2020-10-22 07:44 | EDS_ITS ---
HPI HPI - Fall History of Present Illness Chief Complaint: Fall Informant: patient Occured/Mechanism Occurred: Days Pain/Injury Pain Location: back Quality of Pain: Sharp Current Severity: Mild Maximum Severity: Mild Associated Symptoms Associated Symptoms: Negative for Parasthesias, Weakness, Loss of function, Inability to ambulate, Loss of consciousness and Amnesia Narrative Narrative: 80-year-old female history of pulmonary embolus on Xarelto. Patient stumbled on steps on fell forward. Since later that day she has developed low back pain along her buttock. She did not land on that area she actually fell forward. She did not hit her head. She has no pain going down her leg. She is never had back surgery. She has no fever or chills. She has no urinary symptoms. It is worse with movement. Prior similar symptoms: Yes Recent Illness/Hospitalization: No PFSH PFSH Medical History (Updated 10/22/20 @ 07:[address] Jerome Perry MD) Esophageal spasm HLD (hyperlipidemia) Hypertension Large hiatal hernia Pulmonary embolism Home Medications amlodipine 10 mg PO DAILY 07/14/18 [History Last Taken 04/06/20] atenolol 50 mg PO QHS 07/14/18 [History Last Taken 04/05/20] omeprazole 20 mg PO BID 07/14/18 [History Last Taken 04/06/20] pravastatin 20 mg PO QHS 07/14/18 [History Last Taken 04/05/20] ramipril 10 mg PO DAILY 07/14/18 [History Last Taken 04/06/20] rivaroxaban 15 mg PO BID #42 tab 04/07/20 [Rx Last Taken Unknown] rivaroxaban 20 mg PO DAILY #30 tab 04/07/20 [Rx Last Taken Unknown] Allergy/AdvReac Type Severity Reaction Status Date / Time codeine Allergy Unknown Verified 10/22/20 07:31 Sulfa (Sulfonamide Allergy Unknown Verified 10/22/20 07:31 Antibiotics) Family History Mother Hypertension High cholesterol Sister Cancer Bladder Sister CVA (cerebral vascular accident) Father CVA (cerebral vascular accident) Surgical History H/O eye surgery H/O toe surgery H/O: hysterectomy History of tonsillectomy Hx of appendectomy Social History Smoking Status: Never smoker ROS ROS ED ROS Narrative Denies recent illness. Review of Systems ROS Unobtainable: Denies due to encephalopathy Constitutional Constitutional ED: Denies chills or fever(s) Eyes Eyes: Denies change in vision ENT ENT ED: Denies ear pain or sore throat Cardiovascular Cardiovascular: Denies chest pain Respiratory/Chest Respiratory/Chest: Denies cough or dyspnea Gastrointestinal Gastrointestinal: Denies abdominal pain, diarrhea, nausea or vomiting Genitourinary Genitourinary ED: Denies dysuria Musculoskeletal Musculoskeletal: Denies myalgias Integumentary Denies rash Neurologic Neurologic: Denies headache(s) Psychiatric Psychiatric: Denies depression Endocrine Endocrinology: Denies polyuria Hematologic/Lymphatic Hematologic/Lymphatic: Denies easy bruising Allergic/Immunologic Allergic/Immunologic ED: Denies urticaria EXAM Physical Exam Narrative Exam Narrative: Well-appearing 80-year-old female no acute distress. Vital signs stable afebrile. H EENT exam unremarkable atraumatic. Lungs are clear to auscultation bilaterally. Heart regular rhythm. Abdomen soft nontender normal bowel sounds no peritoneal signs. Patient is moving all 4 extremities. Normal motor strength and sensation. Nontender. No deformity. Back there is no spine tenderness. She has right SI tenderness to palpation. She has a negative straight leg raise bilaterally. Const Vital Signs: 10/22/20 07:28 10/22/20 07:33 Temperature 97.9 F Temperature Source Temporal Pulse Rate 75 Respiratory Rate 16 Respiratory Effort Normal Non-Labored Respiratory Depth Normal Respiratory Pattern Normal Blood Pressure 159/89 H Blood Pressure Mean 112 Pulse Ox 98 Oxygen Delivery Method Room Air Room Air Positive well nourished and well developed; Negative for obese or unkempt General Appearance ED: well developed and NAD; Negative for unkempt Nutritional Appearance: Negative for obese HEENT Reports normocephalic atraumatic; Negative for trauma or tenderness Eyes PERRL and EOMs intact bilaterally General Eye ED: Negative for pale conjunctiva or scleral icterus Neck full ROM, no lymphadenopathy and supple General: Negative for tenderness Chest Wall inspection of chest normal and palpation of chest normal Resp normal respiratory effort, no retractions and clear to auscultation bilaterally Auscultation: Negative for rales, rhonchi or wheezes Cardio regular rate, regular rhythm, S1 normal heart sound, S2 normal heart sound and no murmurs GI non-tender, non-distended and no masses Auscultation: normoactive bowel sounds Palpation: soft Back/Spine no CVA tenderness Back/Spine Narrative: Right SI tenderness. Negative straight leg raise. Spine nontender. No signs of trauma to her back. Extremity normal to inspection, full ROM, no joint enlargement, no calf tenderness and no pedal edema; Negative for normal capillary refill Neuro oriented x3, CN's II-XII intact bilaterally, moves all extremities and no focal motor deficits Sensorium / Orientation: alert, oriented to person, oriented to place and oriented to time; Negative for orientation impaired, confused, lethargic or stuporous Motor Exam: strength 5/5 throughout Psych Appearance: Negative for unkempt Skin Lesions: no lesions and No lesion noted Rashes: no rashes and No rashes noted Trauma: Negative for abrasion or laceration MDM MDM MDM Narrative Medical decision making narrative: 80-year-old female had a fall on that evening started having right low back pain. No radiation. No weakness or numbness in her legs. She never hit her back she fell forward. On exam is consistent with acute inflammation and tenderness to her right SI joint. Darlene giles is on Xarelto she cannot take anti-inflammatories. She does not want pain medication. Conservative approach ice to the area. Tylenol for pain. If not improving consider steroid therapy. Discharge Plan Triage Chief Complaint: Fall ED Provider: Jerome Perry Dx/Rx/DC Orders Clinical Impression: Acute right-sided back pain with sciatica Instructions: ED Sciatica Prescriptions: No Action amlodipine 10 MG tablet 10 mg PO DAILY RF: 0 omeprazole 20 MG capsule 20 mg PO BID RF: 0 pravastatin 20 MG tablet 20 mg PO QHS RF: 0 atenolol 50 MG tablet 50 mg PO QHS RF: 0 ramipril 10 MG capsule 10 mg PO DAILY RF: 0 rivaroxaban 15 MG tablet 15 mg PO BID Qty: 42 RF: 0 rivaroxaban 20 MG tablet 20 mg PO DAILY Qty: 30 RF: 0 Primary Care Provider: Umberto Koch Referrals: Umberto Koch MD [Primary Care Provider] - 1 Week if not improving Activity Restrictions/Additional Instructions: Ice to your right low back you have inflammation of your sciatic notch. Tylenol for pain. Stay active. This should progressively improve. It may tighten up on your plane trip today. If it is not getting better in a week with ice and Tylenol they could consider putting you on prednisone. Disposition Disposition: Home, Self Care
[2020-10-22 07:53] VITALS: RESP 16
== END 2020-10-22 07:56 | disposition home or self-care (01) ==
LOC: ED 07:54
PROVIDERS: Emergency Provider Emergency Medicine; PCP Family Medicine
DX: M54.41 Lumbago with sciatica, right side (principal); E78.5 Hyperlipidemia, unspecified; I10 Essential (primary) hypertension; Z86.711 Personal history of pulmonary embolism; Z79.02 Long term (current) use of antithrombotics/antiplatelets; Z79.899 Other long term (current) drug therapy
CPT/HCPCS: 99282

== ENCOUNTER → 2020-12-14 08:21 | Outpatient (CLI) | payer MEDICARE, OTHER, SELFPAY ==
--- NOTE | 2020-12-14 08:25 | BD_ITS ---
STUDY: DUAL ENERGY X-RAY ABSORPTIOMETRY / DXA REASON FOR EXAM: Female, 80 years old. 733.00OsteoporosisBONE DENSITY REASON FOR EXAM TECHNIQUE: Bone Mineral Density (BMD) measurements of lumbar spine and bilateral hips were obtained. COMPARISON: None. FINDINGS: Lumbar Spine (L1-L4): g/cm2 (1.015) / T-score (-0.3) / Z-score (2.4) Findings are suggestive of normal bone density with a low fracture risk. Left Femur Total: g/cm2 (0.929) / T-score (-0.1) / Z-score (2.0) Left Femoral Neck: g/cm2 (0.782) / T-score (-0.6) / Z-score (1.7) Right Femur Total: g/cm2 (0.958) / T-score (0.1) / Z-score (2.2) Right Femoral Neck: g/cm2 (0.766) / T-score (-0.7) / Z-score (1.6) BD/Dexa Bone Density Study IMPRESSION: The patient is considered normal as outlined below according to World Pra[employer] Organization (WHO) criteria with a low fracture risk. Reference Information: The T-score is the number of standard deviations above or below the standard which is normal for young adults at their peak bone mineral density. The World Health Organization (WHO) interprets the T-scores as follows: Above -1 Normal bone density Between -1 and -2.5 Osteopenia Equal to / or below -2.5 Osteoporosis As a practical clinical guideline, osteopenia may be graded as follows: Mild -1 through -1.5 Moderate -1.6 through -2.0 Severe -2.1 through -2.4 The Z-score is the number of standard deviations above or below age-matched controls. A Z-score of less than -1.5 would be considered abnormal. References: 1. NIH Osteoporosis and Related Bone Diseases www osteo.org 2. International Society for Clinical Densitometry www iscd.org 3. National Osteoporosis Foundation www nof.org Electronically Signed: Itz Larkin MD at 13:34 EDT , Service support ,
== END ==
PROVIDERS: PCP Family Medicine; Referring Provider Family Medicine; Visit Provider Family Medicine
DX: M81.0 Age-related osteoporosis without current pathological fracture (principal); S32.000A Wedge compression fracture of unspecified lumbar vertebra, initial encounter for closed fracture; Z13.820 Encounter for screening for osteoporosis
CPT/HCPCS: 77080

== ENCOUNTER → 2022-06-17 | Outpatient (CLI) | payer MEDICARE, OTHER, SELFPAY ==
--- NOTE | 2022-06-17 07:53 | RAD_ITS ---
STUDY: X-RAY - ESOPHAGUS (BARIUM SWALLOW) WITH FLUOROSCOPY REASON FOR EXAM: Female, 81 years old. DYSPHAGIA TECHNIQUE: 20 view(s) of the esophagus were obtained following swallowing of barium. FLUOROSCOPY TIME (if supplied): (40 seconds) minutes/seconds. 26.06 mGy COMPARISON: Comparison is made with prior study May 26, 2018. FINDINGS: There is no demonstrated esophageal foreign body. There is narrowing at the level of the gastroesophageal junction with trapping of the 12 mm tablet of barium. Moderate-sized hiatal hernia. There is evidence of a moderate-sized Zenker''s diverticulum. There is atherosclerotic calcification of the aortic arch with tortuosity of the descending aorta. Normal visualized pulmonary parenchyma. There are diffuse degenerative changes of the visualized thoracic spine. RAD/Esophagus Dual Contrast IMPRESSION: Narrowing of the distal esophagus at the level of the gastroesophageal junction with a moderate sized hiatal hernia. The ingested 12 mm tablet that barium is trapped at that level. Endoscopic correlation is recommended. Zenker''s diverticulum. Electronically Signed: Itz Larkin MD at 8:46 EDT ,
== END | disposition home or self-care (01) ==
LOC: RAD 07:51
PROVIDERS: PCP Family Medicine; Visit Provider Internal Medicine Gastroenterology
DX: R13.10 Dysphagia, unspecified (principal); Q39.5 Congenital dilatation of esophagus
CPT/HCPCS: 74221

== ENCOUNTER 2023-03-07 08:37 | Emergency (ER) | payer MEDICARE, OTHER, SELFPAY ==
[2023-03-07 08:38] VITALS: BP 127/71; PULSE 82; RESP 14; TEMP 36.6; O2SAT 96; BMI 33.1
--- NOTE | 2023-03-07 08:54 | EKG12_ITS ---
Test Reason : CP Blood Pressure : / mmHG Vent. Rate : 080 BPM Atrial Rate : 080 BPM P-R Int : 180 ms QRS Dur : 094 ms QT Int : 390 ms P-R-T Axes : 031 011 023 degrees QTc Int : 449 ms Normal sinus rhythm Normal ECG Confirmed by ANANTH TEAGUE, GILDA ([id number]), film editor supervisor VICKY ZHONG ([id number]) on 03/18/2023 8:41:18 AM Referred By: GAUTAM/AG Confirmed By:GILDA WADSWORTH MD
--- NOTE | 2023-03-07 08:54 | RAD_ITS ---
STUDY: X-RAY CHEST REASON FOR EXAM: Female, 82 years old. Chest pain TECHNIQUE: Single AP portable view of the chest. COMPARISON: Comparison is made with prior study dated October 04, 2020. FINDINGS: EKG electrodes are seen. The lungs are clear and expanded. There is no demonstrated pleural abnormality. Normal size heart. Normal mediastinum and brayan. Normal visualized pulmonary arteries. Normal visualized aortic arch and descending thoracic aorta. There are diffuse degenerative changes of the visualized thoracic spine. Normal visualized ribs, clavicles, and shoulders. Large hiatal hernia. RAD/Chest 1 View (Portable) IMPRESSION: The lungs are clear. Large hiatal hernia. Electronically Signed: Itz Larkin MD at 9:34 EST ,
--- NOTE | 2023-03-07 08:54 | ED.VIS.CHEST ---
HPI History of Present Illness Chief Complaint: Chest Pain Informant: patient, family and EMS Narrative Narrative: 82-year-old female presenting to the emergency room chief complaint of chest pain. Patient states that yesterday afternoon she had a Jackson sandwich around 1300 hrs. Around 2100 hrs. she developed a sharp pain. In her epigastric left upper quadrant lower left chest. She states that she felt it could have been the sauerkraut. She was able to go to bed and during the night got up a couple of times and noticed that it was still there. She woke around 0730 hrs and that her left fingertips were tingling and notes that it is still present. She was given aspirin and nitroglycerin which significantly improved her symptoms. She states now she feels it she feels it minimally. She states her left arm is back to normal. A history of pulmonary embolism and is on Xarelto. Denies missing any doses. She has a history of a hiatal hernia and has occasional esophageal dilatation with Dr. Oakes. Last dilatation was about 1 year ago. She notes that she has also been diagnosed with esophageal spasms. Reported heart catheterization about 12 years ago and was normal. She had an echocardiogram 2020 that read as stage I diastolic dysfunction normal EF. She has not had any difficulty swallowing. She reports no change in exercise tolerance. She denies any new medications or change in medication dosing. She denies any black or bloody stools. No vomiting or nausea. Prehospital EKG shows a normal sinus rhythm with no concerning features of ACS. [facility] Medical History Contact with and (suspected) exposure to other viral communicable diseases Esophageal spasm HLD (hyperlipidemia) Hypertension Large hiatal hernia Pulmonary embolism Home Medications amlodipine 10 mg tablet 10 mg PO DAILY 07/14/18 [History Last Taken 04/06/20] atenolol 50 mg tablet 50 mg PO QHS 07/14/18 [History Last Taken 04/05/20] omeprazole 20 mg capsule,delayed release 20 mg PO BID GERD 07/14/18 [History Last Taken 04/06/20] pravastatin 20 mg tablet 20 mg PO QHS CHOLESTEROL 07/14/18 [History Last Taken 04/05/20] ramipril 10 mg capsule 10 mg PO DAILY HEART 04/30/19 [History Last Taken 04/06/20] rivaroxaban 10 mg tablet (Xarelto) 10 mg PO DAILY #90 tabs 12/18/21 [Rx Last Taken Unknown] levothyroxine 50 mcg capsule 50 mcg PO DAILY 01/17/22 [History Last Taken Unknown] Allergy/AdvReac Type Severity Reaction Status Date / Time codeine Allergy Unknown Verified 03/07/23 08:38 Sulfa (Sulfonamide Allergy Unknown Verified 03/07/23 08:38 Antibiotics) Family History Mother Hypertension High cholesterol Sister Cancer Bladder Sister CVA (cerebral vascular accident) Father CVA (cerebral vascular accident) Surgical History H/O eye surgery H/O toe surgery H/O: hysterectomy History of tonsillectomy Hx of appendectomy Social History Smoking Status: Never smoker ROS ROS ED Constitutional Constitutional ED: Denies chills or weight loss Eyes Eyes: Denies change in vision or diplopia ENT ENT ED: Denies ear pain, rhinorrhea or sore throat Cardiovascular Cardiovascular: Reports chest pain; Denies orthopnea, palpitations or racing heartbeat Respiratory/Chest Respiratory/Chest: Denies cough, dyspnea or orthopnea Gastrointestinal Gastrointestinal: Reports abdominal pain; Denies diarrhea, nausea or vomiting Genitourinary Genitourinary ED: Denies dysuria, hematuria or urinary frequency Musculoskeletal Musculoskeletal: Denies arthralgias or myalgias Integumentary Denies abscess or rash Neurologic Neurologic: Reports paresthesias LUE; Denies headache(s) or weakness Psychiatric Psychiatric: Denies anxiety, depression, suicidal ideation or suicidal thoughts Endocrine Endocrinology: Denies polydipsia, polyphagia or polyuria Allergic/Immunologic Allergic/Immunologic ED: Denies mouth swelling, tongue swelling or urticaria EXAM Physical Exam Const Vital Signs: 03/07/23 08:38 03/07/23 08:43 Temperature 97.8 F Temperature Source Temporal Pulse Rate 82 Respiratory Rate 14 Respiratory Effort Normal Blood Pressure 127/71 H Blood Pressure Mean 89 Pulse Ox 96 Oxygen Delivery Method Room Air Positive well nourished and well developed General Appearance ED: well developed HEENT Reports normocephalic, head/scalp atraumatic and moist mucous membranes Eyes PERRL and EOMs intact bilaterally Neck no lymphadenopathy, supple and no JVD Resp normal respiratory effort and clear to auscultation bilaterally Cardio regular rate, regular rhythm and no murmurs GI normal to inspection, nondistended, normoactive bowel sounds and non-tender Palpation: soft Back/Spine no CVA tenderness and normal ROM Extremity normal to inspection General Extremety ED: Negative for edema General Extremity: Negative for edema Neuro oriented x3 and CN's II-XII intact bilaterally Sensorium / Orientation: alert Motor Exam: strength 5/5 throughout Psych mental status grossly normal Mood & Affect: Negative for depressed or tearful Skin no rashes or lesions noted and no wounds Heart Score History: Slightly/Non-Suspicious ECG: Normal Age: >/= 65 years Risk Factors: >/= 3 Risk Factors or History of CAD Troponin: </= Normal Limit Score: 4 MDM MDM MDM Narrative Medical decision making narrative: My independent interpretation of the chest x-ray is hiatal hernia. Patient's D-dimer is within normal limits. Troponin is 5. This is very important as the patient's symptoms have been present for approximately 11 hours and noted to be constant. Her EKG is nonischemic. BMP shows a glucose of 121. CBC with a normal white count hemoglobin and platelet count. Clinically I think this is most likely gastrointestinal in nature. I do not believe this to be ACS pulmonary embolism dissection or other pulmonary emergency. Patient to continue her omeprazole. She may follow-up with primary care/GI. History & Record Review Discussion w/independent historian: EMS personnel, Patient and Family Lab Data Attestation: I reviewed the patient's lab results. Labs: Laboratory Results - last 24 hr 03/07/23 08:30 WBC 5.4 RBC 4.64 Hgb 13.4 Hct 40.7 MCV 87.7 MCH 28.9 MCHC 32.9 RDW Std Deviation 44.0 H RDW Coeff of Lalit 13.9 Plt Count 200 MPV 10.2 Immature Gran % (Auto) 0.400 Neut % (Auto) 35.6 L Lymph % (Auto) 48.6 H Parmer % (Auto) 9.5 Eos % (Auto) 5.0 Baso % (Auto) 0.9 Absolute Neuts (auto) 1.9 L Absolute Lymphs (auto) 2.60 Nucleated RBC % 0 D-Dimer Quant (PE/DVT) 0.45 Sodium 142 Potassium 3.6 Chloride 111 H Carbon Dioxide 26.0 Anion Gap 5 BUN 16 Creatinine 0.80 Estim Creat Clear Calc 38.94 Est GFR (MDRD) Af Amer 89 Est GFR (MDRD) Non-Af 73 BUN/Creatinine Ratio 20.1 H Glucose 121 H Calcium 9.2 Troponin I High Sens 5 Radiography Diagnostic Testing: Clinical Impression(s) from Imaging Studies Chest X-Ray 03/07/23 08:54 IMPRESSION: The lungs are clear. Large hiatal hernia. Electronically Signed: Itz Larkin MD at 9:34 EST , EKG Initial EKG: Attestation: I personally reviewed and interpreted this EKG as follows: Comments: Normal sinus rhythm with a ventricular rate of 80 bpm. No definitive features of ACS noted. Prior EKG tracings: available for review Prior: Unchanged (06 Apr 2020) Discharge Plan Triage Chief Complaint: Chest Pain ED Provider: Sea Fuentes Dx/Rx/DC Orders Prescriptions: No Action levothyroxine 50 mcg capsule 50 mcg PO DAILY amlodipine 10 MG tablet 10 mg PO DAILY omeprazole 20 MG capsule 20 mg PO BID pravastatin 20 MG tablet 20 mg PO QHS atenolol 50 MG tablet 50 mg PO QHS ramipril 10 MG capsule 10 mg PO DAILY Xarelto 10 mg tablet 10 mg PO DAILY Qty: 90 3RF Primary Care Provider: Umberto Koch Referrals: Umberto Koch MD [Primary Care Provider] -
[2023-03-07 09:04] LABS: Absolute Neutrophil Count 1.9 X10^3/uL (2.0-7.7); Basophil# 0.05 X10^3/uL; Basophil% 0.9 % (0-1); Eosinophil# 0.27 X10^3/uL; Hematocrit 40.7 % (37-47); Hemoglobin 13.4 g/dL (12.0-15.0); Lymphocyte % 48.6 % (19-41); Mean Corp Hgb Conc 32.9 g/dL (32-36); Mean Corpuscular Hgb 28.9 pg (27.0-32.0); Mean Corpuscular Volume 87.7 fL (81-99); Mean Platelet Vol. 10.2 fl (6.2-12.0); Monocyte# 0.51 X10^3/uL; Monocyte% 9.5 % (0-10); NRBC Flagged by Analyzer 0 % (0-5); Neutrophil % 35.6 % (47-70); Platelet Count 200 K/mm3 (150-450); RBC Distribution Width CV 13.9 % (11.6-14.6); Red Blood Count 4.64 M/mm3 (4.2-5.4); White Blood Count 5.4 K/mm3 (4.4-11.0)
[2023-03-07 09:17] LABS: D-Dimer Quantitative (DVT/PE) 0.45 FEU/ug/m (0.27-0.49)
[2023-03-07 09:19] LABS: Anion Gap 5 (5-15); BUN 16 mg/dL (7-18); BUN/Creat Ratio 20.1 RATIO (10-20); Calcium,Total 9.2 mg/dL (8.5-10.1); Chloride 111 mmol/L (98-107); EST Glomerular Filtration Rate 73 mL/min (>60); Est Glom Filt Rate - Afr Amer 89 mL/min (>60); Estimated Creatinine Clearance 38.94 ml/min; Glucose 121 mg/dL (74-106); Potassium 3.6 mmol/L (3.5-5.1); Sodium Level 142 mmol/L (136-145); Troponin-I HS (w/2H Reflex) 5 pg/mL (3.0-54.0)
[2023-03-07 10:20] VITALS: BP 143/83
[2023-03-07 10:59] LABS: Reflex Troponin-HS? (from REC) Y
== END 2023-03-07 10:22 | disposition home or self-care (01) ==
PROVIDERS: Emergency Provider Emergency Medicine; PCP Family Medicine; Visit Provider Emergency Medicine
DX: R07.9 Chest pain, unspecified (principal); K44.9 Diaphragmatic hernia without obstruction or gangrene; E78.5 Hyperlipidemia, unspecified; I10 Essential (primary) hypertension; Z79.82 Long term (current) use of aspirin; Z79.01 Long term (current) use of anticoagulants; Z86.711 Personal history of pulmonary embolism
CPT/HCPCS: 71045; 80048; 84484; 85025; 85379; 93005; 99285